=== PATIENT | female | born 1955 | race African-American/Black ===

== ENCOUNTER → 2019-10-09 10:24 | Outpatient (CLI) | payer BC, SELFPAY ==
--- NOTE | ~2019-10-09 | CT_ITS ---
EXAMINATION: CT abdomen pelvis w con DATE: 10/09/2019 12:17 INDICATION: Crohn's disease of the bowel. TECHNIQUE: Computed tomography (CT) of the abdomen and pelvis was performed with 100 cc Omnipaque 350 intravenous contrast. The dose-length product was 938.26 mGy-cm. Automated exposure control and iter ative reconstruction technique were employed. COMPARISON: CT dated 02/28/2018 FINDINGS: Lung bases are unremarkable. Heart size normal. No pleural or pericardial effusion. Mild at herosclerosis of the aorta. Surgical changes suggesting ileocecal resection. There is mild thickening of the ileum just proximal to the anastomosis. There are air-fluid levels in the small bowel as well as the colon, possible ileus. No definite obstruction. Moderate gastric distention. The liver, spleen, pancreas, adrenal glands and kidneys are unremarkable. No free air or free fluid. Gallbladder is present. Mild right inguinal lymphadenopathy, likely reactive. Mild bilateral sacroili itis, consistent with Crohn's disease. Uterus is likely surgically absent. IMPRESSION: 1. Mild thickening of the ileum just proximal to the ileocolic anastomosis, suspicious for acute infl ammation secondary to known Crohn's disease. No obstruction. Air-fluid levels in the small bowel and colon, likely ileus. Reviewed, dictated and finalized at location A. ERER IMPRESSION: 1. Mild thickening of the ileum just proximal to the ileocolic anastomosis, masha picious for acute inflammation secondary to known Crohn's disease. No obstructi on. Air-fluid levels in the small bowel and colon, likely ileus.
[2019-10-09 11:54] LABS: Blood Urea Nitrogen 10 mg/dL (8-26); Estimated Glomerular Filt Rate > 60
== END ==
PROVIDERS: Visit Provider Nurse Practitioner
DX: K50.80 Crohn's disease of both small and large intestine without complications (principal)
CPT/HCPCS: 74177; Q9967

== ENCOUNTER 2020-02-19 00:05 | Outpatient (CLI) | payer BC, SELFPAY ==
[2020-02-19 18:54] LABS: SARS-CoV-2 RNA PCR Negative
== END 2020-02-19 00:06 | disposition home or self-care (01) ==
LOC: ANHCOVIDDT 00:05
PROVIDERS: PCP Internal Medicine; Visit Provider Internal Medicine Gastroenterology
DX: Z01.812 Encounter for preprocedural laboratory examination (principal); Z11.59 Encounter for screening for other viral diseases
CPT/HCPCS: 87635; C9803; U0003

== ENCOUNTER 2020-02-21 01:45 | Day surgery (SDC) | payer BC, SELFPAY ==
[2020-02-14 13:20] VITALS: BMI 33.7
[2020-02-21 10:59] VITALS: BP 119/77; PULSE 100; RESP 18; TEMP 36.2; O2SAT 100
[2020-02-21] MEDS: LACTATED RINGERS 1,000 ML 150 ML IV CONT (11:06)
[2020-02-21] MEDS: GENTAMICIN 80MG/SOD CHL 50 ML 80 MG/50 ML BAG 100 MG IVPB (11:07)
--- NOTE | 2020-02-21 11:17 | WPDANESEPPF ---
Anes - Initial Pre Proc Eval Procedure: Operation Date: 02/21/20 12:00 Proposed Procedures p Colonoscopy - Phan Orozco DO Date/Time: 02/21/20 11:17 Surgeon: Phan Orozco DO Pre Op Diagnosis: Crohn's Patient Data Age: 64 Gender: F Height: 5 ft 6 in Weight: 91.8 kg Last Vital Signs Temp 97.2 F L 02/21/20 10:59 Pulse 100 02/21/20 10:59 Resp 18 02/21/20 10:59 BP 119/77 02/21/20 10:59 Pulse Ox 100 02/21/20 10:59 Allergies Allergy/AdvReac Type Severity Reaction Status Date / Time No Known Drug Allergies Allergy Unknown Other Verified 02/21/20 10:45 Home Medications Medication Instructions Recorded Confirmed Type calcium carbonate-vitamin D3 1 tablet PO DAILY 02/14/20 02/21/20 History folic acid 1 mg PO DAILY PRN 02/14/20 02/21/20 History hydrocodone-acetaminophen 1 tablet PO PRN PRN 02/14/20 02/21/20 History lansoprazole 30 mg PO DAILY 02/14/20 02/21/20 History mesalamine 1.2 g PO DAILY 02/14/20 02/21/20 History multivitamin [Tab-A-Nilesh] 1 tablet PO DAILY 02/14/20 02/21/20 History Patient hx anesthesia problems: none Family hx anesthesia problems: none PMFSH Past Medical History Medical History (Updated 02/21/20 @ 11:17 by Matheus Urena MD) GERD (gastroesophageal reflux disease) Family History Family History (Updated 03/06/19 @ 10:40 by DOCTOR UNKNOWN) Mother Diabetes mellitus Hypertension Family history of coronary artery disease Sibling Carcinoma of colon Social History Social History Smoking status: Current every day smoker Alcohol intake: current Anes - Eval Final PreProcedure Day of Procedure 02/21/20 11:17 Patient weight: normal Heart: regular rate and rhythm Lungs: clear to auscultation Airway: Mallampati scale class II Neurological: alert and oriented Last oral intake: >/= 8 hours ASA classification: II Emergent: no Anesthetic plan: proceed Anesthesia type and monitoring: general GIVS and standard monitoring Informed Consent: The patient's anesthetic plan and its attendant risks and benefits were discussed with the patient/family/POA. Questions were solicited and answers provided to the satisfaction of the patient/family/POA.
[2020-02-21] MEDS: AMPICILLIN 2 GM/NS 100 ML 2 GM/100 ML BAG IVPB (11:32)
--- NOTE | 2020-02-21 11:46 | P.HP_ITS ---
H&P: HPI History of Present Illness Chief complaint: Crohn's Narrative: Reason for visit colonoscopy. Impression: [place] lady with Crohn's disease. She is status post ileocolectomy. She has a family history colorectal cancer. She is here for screening and surveillance. GERD well controlled on medication. Intestinal metaplasia of the gastric mucosa. Breast cancer. Tobacco abuse. Obesity. Recommendation: Will proceed with colonoscopy. History: This very pleasant lady has history of Crohn's disease. She status post ileal colectomy. She also has a family history of colorectal cancer. She has history of reflux disease well controlled on medication. Her GI review syst ems at this time was negative. She is here for screening and surveillance. She previously has had small bowel Crohn's. physical examination: General: very pleasant patient in no acute distress. HEENT: Head was normocephalic sclerae is clear mouth without masses neck was supple. Heart: Rate rhythm regular without S3 or S4. Lungs: CTA. Abdomen: Soft with no guarding or rigidity. Bowel sounds were active. Neurologic: Cranial nerves 2 through 12 intact. No focal defects. No clonus. Musculoskeletal system: Revealed no joint tenderness or swelling no muscle atrophy. Extremities: Reveal no significant edema. Skin: Warm and dry with normal turgor. Mental status: intact. Patient is alert and oriented. Review of Systems Review of Systems: All systems reviewed & are unremarkable except as noted in HPI and below PMFSH Past Medical History Medical History Breast cancer RTX Crohn's disease GERD (gastroesophageal reflux disease) Intestinal metaplasia of gastric mucosa Tobacco abuse Surgical History Surgical History H/O colonoscopy H/O knee surgery History of ankle surgery History of esophagogastroduodenoscopy (EGD) S/P breast lumpectomy S/P small bowel resection Ileal-colectomy for crohn's Family History Family History Mother Diabetes mellitus Hypertension Family history of coronary artery disease Sibling Carcinoma of colon Social History Social History Smoking status: Current every day smoker Alcohol intake: current Meds Home Medications and Allergies Home Medications Medication Instructions Recorded Confirmed Type calcium carbonate-vitamin D3 1 tablet PO DAILY 02/14/20 02/21/20 History folic acid 1 mg PO DAILY PRN 02/14/20 02/21/20 History hydrocodone-acetaminophen 1 tablet PO PRN PRN 02/14/20 02/21/20 History lansoprazole 30 mg PO DAILY 02/14/20 02/21/20 History mesalamine 1.2 g PO DAILY 02/14/20 02/21/20 History multivitamin [Tab-A-Nilesh] 1 tablet PO DAILY 02/14/20 02/21/20 History Allergies Allergy/AdvReac Type Severity Reaction Status Date / Time No Known Drug Allergies Allergy Unknown Other Verified 02/21/20 10:45 Vital Signs Vital Signs - 24 hr 02/21/20 10:59 Temperature 36.2 C L Pulse Rate 100 Respiratory Rate 18 Blood Pressure 119/77 Pulse Oximetry 100
[2020-02-21 12:14] VITALS: BP 84/55; PULSE 84; RESP 27; O2SAT 97
[2020-02-21 12:23] VITALS: BP 99/61; PULSE 81; RESP 20; O2SAT 100
[2020-02-21 12:33] VITALS: BP 117/70; PULSE 82; RESP 20; O2SAT 98
[2020-02-21 13:32] LABS: Hematocrit 38.8 % (37.0-47.0); Hemoglobin 12.4 g/dL (12.0-15.0); Mean Corpuscular Hemoglobin 29.6 pg (26-34); Mean Corpuscular Volume 92.6 fl (80-100); Mean Platelet Volume 10.4 fl (7.4-10.4); Platelet Count Result 286 k/mm3 (150-375); Red Blood Count 4.19 M/mm3 (4.2-5.4); Red Cell Distribution Width 13.6 % (11.5-14.5); White Blood Count 10.6 K/mm3 (4.5-10.0)
[2020-02-21 13:39] LABS: INR 1.1; Prothrombin Time 13.8 Seconds (11.1-14.7)
[2020-02-21 13:40] LABS: Cholesterol 190 mg/dL (0-200); HDL Direct 33 mg/dL; Magnesium 1.9 mg/dL (1.6-2.3); Phosphorus 4.4 mg/dL (2.5-4.5); Triglycerides 230 mg/dL (<150)
[2020-02-21 13:41] LABS: Alanine Aminotransferase 11 U/L (4-35); Albumin Level 4.1 g/dL (3.5-5.1); Alkaline Phosphatase 142 U/L (38-126); Aspartate Amino Transferase 22 U/L (14-36); Bilirubin,Total 0.4 mg/dL (0.2-1.3)
[2020-02-21 13:51] LABS: Iron 45 ug/dL (37-170)
[2020-02-21 13:52] LABS: LDL Cholesterol Direct 121 mg/dL
[2020-02-21 13:58] LABS: T4 Thyroxine 8.34 ug/dL (5.53-11.0)
[2020-02-21 14:01] LABS: Percent Iron Saturation 13 % (20-50)
[2020-02-21 14:27] LABS: Free T4 Free Thyroxine 1.13 ng/mL (0.78-2.19)
[2020-02-21 14:48] LABS: Folic Acid > 20.0 ng/mL (2.76->20)
[2020-02-21 15:36] LABS: Hepatitis B Surface Antigen Negative (Negative)
[2020-02-24 22:47] LABS: NIL 0.01 IU/mL; Quantiferon TB Plus, 1T NEGATIVE (NEGATIVE); TB2-NIL 0.01 IU/mL
[2020-02-25 04:17] LABS: Hepatitis A Antibody Total Nonreactive (Nonreactive); Hepatitis B Core Ab Total Nonreactive (Nonreactive)
[2020-03-01 17:21] LABS: TPMT Activity 10
== END 2020-02-21 13:11 | disposition home or self-care (01) ==
PROVIDERS: PCP Internal Medicine; Visit Provider Internal Medicine Gastroenterology
PROC: 0DJD8ZZ Inspection of Lower Intestinal Tract, Via Natural or Artificial Opening Endoscopic (ICD-10-PCS; CPT 45378; principal; 2020-02-21 12:00)
DX: K50.10 Crohn's disease of large intestine without complications (principal); K50.00 Crohn's disease of small intestine without complications; K64.8 Other hemorrhoids; Z98.0 Intestinal bypass and anastomosis status; Z90.49 Acquired absence of other specified parts of digestive tract; K21.9 Gastro-esophageal reflux disease without esophagitis; F17.210 Nicotine dependence, cigarettes, uncomplicated; Z85.3 Personal history of malignant neoplasm of breast; E66.9 Obesity, unspecified; Z68.32 Body mass index [BMI] 32.0-32.9, adult; Z79.899 Other long term (current) drug therapy
CPT/HCPCS: 45380; 36415; 80061; 80076; 82525; 82607; 82657; 82728; 82746; 83540; 83550; 83735; 84100; 84436; 84439; 84443; 85027; 85610; 86480; 86704; 86708; 87340; 88305; J0290; J1580; J2704; J7120

== ENCOUNTER 2020-03-14 20:53 | Observation (INO) | payer BC, SELFPAY ==
--- NOTE | ~2020-03-14 | XR_ITS ---
EXAMINATION: XR chest 2V EXAM DATE: 03/16/2020 10:46 INDICATION: Leukocytosis. TECHNIQUE: Frontal and lateral projections of the chest obtained and reviewed. Comparison is made to prior examination from 04/22/2015. FINDINGS: The lungs are clear. There are no pleural effusions. The cardiomediastinal silhouette is within normal limits. There is no pneumothorax suspected. Patient has diffuse idiopathic skeletal h yperostosis (DISH). IMPRESSION: No acute cardiopulmonary findings. Reviewed, dictated and finalized at location G.
[2020-03-14 20:58] VITALS: BP 175/93; PULSE 116; RESP 14; TEMP 36.8; O2SAT 99
[2020-03-14 21:01] LABS: Glucose Point of Care > 500 (65-105)
[2020-03-14 22:15] LABS: Basophils Percent Auto 0.3 % (0.2-1.2); Eosinophils Absolute Auto 0.1 K/mm3 (0-0.3); Eosinophils Percent Auto 0.4 % (0-4.4); Hematocrit 42.9 % (37.0-47.0); Immature Granulocyte Absolute 0.04 K/mm3 (0.00-0.031); Immature Granulocyte Percent A 0.3 % (0-0.5); Lymphocytes Absolute Auto 3.29 K/mm3 (0.9-3.2); Lymphocytes Percent Auto 26.3 % (18.3-44.2); Mean Corpuscular HGB Conc 32.6 g/dl (32-36); Mean Corpuscular Hemoglobin 29.7 pg (26-34); Mean Corpuscular Volume 91.1 fl (80-100); Mean Platelet Volume 11.2 fl (7.4-10.4); Monocytes Absolute Auto 0.8 K/mm3 (0.1-0.6); Monocytes Percent Auto 6.4 % (2.6-8.5); Neutrophils Absolute Auto 8.3 K/mm3 (1.3-6.7); Neutrophils Percent Auto 66.3 % (45.5-73.1); Platelet Count Result 339 k/mm3 (150-375); Red Blood Count 4.71 M/mm3 (4.2-5.4); Red Cell Distribution Width 14.1 % (11.5-14.5); White Blood Count 12.5 K/mm3 (4.5-10.0)
[2020-03-14] MEDS: SODIUM CHLORIDE 0.9% IV 1,000 ML 999 ML IV CONT ×2 (22:15)
[2020-03-14 22:16] LABS: Add Urine Microscopic? YES; Appearance Urine Clear (Clear); Bilirubin Urine Negative (Negative); Blood Urine Negative (Negative); Color Urine Colorless (Yellow); Glucose Urine UA 3+ mg/dL (Negative); Ketones Urine Negative (Negative); Leukocyte Esterase Ur Trace LEU/UL (Negative); Nitrate Urine Negative (Negative); Protein Urine Negative (Negative); RBC Urine 0-2 /hpf (0-2); Squamous Epithelial Cell Urine Occasional /hpf (Few); Urobilinogen Urine Negative mg/dL (<2.0); WBC Urine 0-3 /hpf
[2020-03-14 22:17] LABS: Specific Grav Ur 1.032 (1.001-1.035)
[2020-03-14 22:19] LABS: Alveolar/Arterial O2 Gradient 21.8 mmHg; Base Excess ABG -0.1 mEq/l (+/-2.0); Carboxyhemoglobin 7.8 % THb (0-2.0); Fractional Inspired Oxygen 21 %; HCO3 ABG 24.6 mEq/l (22.0-26.0); Methemoglobin ABG 0.3 %THb (0-1.5); Oxygen Content ABG 17.6 %vol (16.0-22.0); Oxygen Saturation ABG 95.8 % (95.0-100.0); Oxyhemoglobin 87.2 % THb (90.0-100.0); PCO2 ABG 40.5 mmHg (35.0-45.0); PO2 ABG 79.4 mmHg (80.0-100.0); PO2 FiO2 Ratio Arterial Blood 3.78 %; Reduced Hemoglobin 4.7 %THb (0-5.0); Total Hemoglobin 14.3 g/dL (12.0-18.0); pH ABG 7.402 (7.350-7.450)
[2020-03-14 22:20] LABS: Device ROOM AIR; Modified Allen's Test Pass; Site Drawn LEFT RADIAL
[2020-03-14 22:29] LABS: Alanine Aminotransferase 20 U/L (4-35); Albumin Level 4.6 g/dL (3.5-5.1); Alkaline Phosphatase 304 U/L (38-126); Anion Gap 14.4 mmol/L (7-16); Aspartate Amino Transferase 25 U/L (14-36); Bilirubin,Total 0.4 mg/dL (0.2-1.3); Blood Urea Nitrogen 19 mg/dL (7-17); Calcium 10.5 mg/dL (8.4-10.2); Carbon Dioxide 27 mmol/L (22-30); Chloride 102 mmol/L (98-107); Estimated CRCL calculation 63 ml/min; Estimated Glomerular Filt Rate > 60; Magnesium 2.2 mg/dL (1.6-2.3); Phosphorus 4.9 mg/dL (2.5-4.5); Potassium 4.4 mmol/L (3.4-5.0); Sodium 139 mmol/L (137-145)
[2020-03-14 22:34] LABS: Beta-Hydroxybutyrate/Acetoacetate 0.66 mmol/L (0.02-0.27)
[2020-03-14 22:38] LABS: Glucose 721 mg/dL (65-105)
[2020-03-14 23:01] VITALS: BP 159/84; PULSE 96; RESP 18; O2SAT 100
[2020-03-14 23:41] LABS: Glucose Point of Care > 500 (65-105)
--- NOTE | 2020-03-14 23:42 | PC.NURSE ---
Dr Caba aware repeat Glucose POC 507
[2020-03-14] MEDS: INSULIN HUMAN REGULAR (*BKC) 100 UNITS/ML 9 UNITS IV PUSH (23:53)
--- NOTE | 2020-03-15 00:12 | ED.RECABL ---
HPI - Recheck/Abnormal Lab/Rx General Chief Complaint: Recheck/Abnormal Lab/Rx Stated Complaint: elevated blood sugar Time Seen by Provider: 03/14/20 21:26 History of Present Illness HPI narrative: Patient is a 64-year-old female who presents ER with elevated blood sugar. Patient reports that over the last week she has been having more frequent urination has been thirsty all the time. She is been feeling more fatigued. Family thought she looked off so they took her to an urgent care where she was found to be hyperglycemic. Patient has no history of diabetes personally but does have family history. No fever/chills/sweats/nausea/vomiting/dizziness. Has not found any aggravating or alleviating factors for symptoms. Related Data Home Medications Medication Instructions Recorded Confirmed calcium carbonate-vitamin D3 1 tablet PO DAILY 02/14/20 02/21/20 folic acid 1 mg PO DAILY PRN 02/14/20 02/21/20 lansoprazole 30 mg PO DAILY 02/14/20 02/21/20 mesalamine 1.2 g PO DAILY 02/14/20 02/21/20 multivitamin [Tab-A-Nilesh] 1 tablet PO DAILY 02/14/20 02/21/20 budesonide 9 mg PO DAILY 03/14/20 Allergies Allergy/AdvReac Type Severity Reaction Status Date / Time No Known Drug Allergies Allergy Unknown Other Verified 03/14/20 21:33 Review of Systems Review of Systems: All systems reviewed & are unremarkable except as noted in HPI and below Constitutional: Constitutional: Denies chills, Denies fever(s) and Denies weakness ENT: Denies nasal congestion and Denies sore throat Cardiovascular: Cardiovascular: Denies chest pain and Denies rapid heart rate Gastrointestinal: Gastrointestinal: Denies abdominal pain, Denies nausea and Denies vomiting Endocrine: Endocrine: Denies excessive sweating, Reports fatigue, Reports polydipsia and Reports polyuria PMFSH Past Medical History Medical History (Updated 03/15/20 @ 02:28 by Nikita Caba MD) Breast cancer Invasive ductal carcinoma status post right partial mastectomy May 2013 status post radiation treatment Crohn's disease GERD (gastroesophageal reflux disease) Intestinal metaplasia of gastric mucosa Tobacco abuse Surgical History Surgical History (Updated 03/15/20 @ 02:16 by Liz Rivera DO) H/O colonoscopy History of ankle surgery History of esophagogastroduodenoscopy (EGD) History of total right knee replacement 2015 S/P breast lumpectomy partial mastectomy due to invasive ductal carcinoma May 2013 S/P small bowel resection Ileal-colectomy for crohn's Family History Family History (Updated 03/15/20 @ 02:17 by Liz Rivera DO) Mother Diabetes mellitus Hypertension Heart disease Sibling Carcinoma of colon sister Son Diabetes mellitus Social History Social History Smoking status: Current every day smoker Alcohol intake: current Exam Narrative: Exam Narrative: GENERAL: Well-appearing, well-nourished, and in no acute distress. HEAD: Normocephalic, atraumatic. EYES: PERRL and EOMI. CHEST: Clear to auscultation. No respiratory distress. HEART: Tachycardic and regular. Normal peripheral pulses. ABDOMEN: Soft, nontender, nondistended. EXTREMITIES: Normal range of motion. No edema. SKIN: Warm, dry, no rash. NEURO: Alert and oriented x3. PSYCH: Normal mood and affect. Course Course Emergency Course: Blood sugar responding well to IV fluid and insulin. Will admit for observation. Vital Signs Vital signs: Vital Signs Temperature 98.3 F 03/14/20 20:58 Pulse Rate 116 H 03/14/20 20:58 Respiratory Rate 14 03/14/20 20:58 Blood Pressure 175/93 H 03/14/20 20:58 Pulse Oximetry 99 03/14/20 20:58 Temperature 96.9 F L 03/15/20 02:15 Pulse Rate 90 03/15/20 02:15 Respiratory Rate 18 03/15/20 02:15 Blood Pressure 160/85 H 03/15/20 02:15 Pulse Oximetry 100 03/15/20 02:15 MDM - Recheck/Abnormal Lab/Rx Lab Data Result diagrams: 03/14/20 22
[2020-03-15 00:38] LABS: Glucose Point of Care 296 (65-105)
[2020-03-15 01:39] VITALS: BP 133/84; PULSE 94; RESP 16; TEMP 36.6; O2SAT 99
--- NOTE | 2020-03-15 02:12 | ADMGEN ---
This patient, Nichole Santizo, was admitted to Medical Room 254-01 0210. Patient/family oriented to hospital policies and general routines including ID bracelet, bed and alarms, visiting hours, pain management, procedures, bathroom and other care routines, personal items, smoking policy, room service/diet, and visiting hours. Valuables list has been completed. Information on how to activate the Rapid Response Team has been discussed. Patient/Family are encouraged to report perceived risks to care and to ask questions if they do not understand what they are told or what they should do.
[2020-03-15 02:15] VITALS: BP 160/85; PULSE 90; RESP 18; TEMP 36.1; O2SAT 100; BMI 31.5
[2020-03-15] MEDS: SODIUM CHLORIDE 0.9% IV 1,000 ML 100 ML IV CONT (02:15)
[2020-03-15 03:00] LABS: Glucose Point of Care 308 (65-105)
--- NOTE | 2020-03-15 03:24 | PCCDE ---
Left message on voice mail alerting certified breastfeeding educator to Newly Diagnosed Diabetic.
--- NOTE | 2020-03-15 05:01 | PM.IMHP ---
H&P: HPI History of Present Illness Chief complaint: hyperglycemia Narrative: date and time of patient contact: 03/15/2020 at 4:00 a.m. Nichole Santizo is a 64 year old female with a past medical history of GERD anxiety and Crohn's disease who presented to the ER from urgent care due to increased urinary frequency. The patient was having increased urinary frequency and occasional dysuria for the last week or so. It was accompanied by polydipsia and blurred vision. she reports that food has not tasted normal for the last week or so. She you went to urgent care at which time an Accu-Chek demonstrated glucose greater than 500 and she was directed to come to the ER. She denies having history of diabetes. However, her son at 30 years old of complications of diabetes. she has not had any nausea or vomiting. She denies any abdominal pain. She has noticed some mild dysuria but denies any hematuria, foul-smelling urine, or urinary incontinence. She has had increased nocturia. She denies any numbness, burning or paresthesias of her extremities. She has not had any fevers or chills. She denies any cough or congestion. She has not noticed any sore throat or difficulty swallowing. she has smoked since she was a teenager but denies a diagnosis of COPD or respiratory symptoms. Review of Systems Review of Systems: Narrative: 12 systems were reviewed with pertinent positives and negatives per HPI. Except as documented in the HPI, all other systems were reviewed and are negative. [facility] Past Medical History Medical History (Updated 03/15/20 @ 05:13 by Liz Rivera DO) Breast cancer Invasive ductal carcinoma status post right partial mastectomy May 2013 status post radiation treatment Crohn's disease GERD (gastroesophageal reflux disease) Intestinal metaplasia of gastric mucosa Tobacco abuse Surgical History Surgical History (Updated 03/15/20 @ 05:18 by Liz Rivera DO) H/O colonoscopy History of ankle surgery History of esophagogastroduodenoscopy (EGD) History of total right knee replacement Originally performed around [address] Grady S/P breast lumpectomy partial mastectomy due to invasive ductal carcinoma May 2013 S/P small bowel resection Ileal-colectomy for crohn's Family History Family History (Updated 03/15/20 @ 05:07 by Liz Rivera DO) Mother Diabetes mellitus Hypertension Heart disease Sibling Breast cancer sister Son Diabetes mellitus at age 30 Social History Social History (Updated 03/15/20 @ 05:10 by Liz Rivera DO) Social History: Primary care physician: Dr. Resendez Code status: Full code per EMR Smoking packs per day: 1 Smoking cigarettes per day: 20.0 Years smoked: 45 Smoking pack-years: 45.00 Smoking status: Current every day smoker Tobacco type: cigarettes Alcohol intake: current Alcohol use details: she rarely drinks alcohol and only in moderation. Substance use: unknown Substance use type: does not use Additional living arrangements comments: She is single and lives alone. She had 1 son who at age 30 of complications of diabetes. She has a daughter who is now 30 and has medical conditions but the patient is unaware of what they are. Occupation/Education: occupation Additional occupation/education comments: She works in a [employer]. Spiritual care concerns: No Meds Home Medications and Allergies Home Medications Medication Instructions Recorded Confirmed Type calcium carbonate-vitamin D3 1 tablet PO DAILY 02/14/20 03/15/20 History folic acid 1 mg PO DAILY 02/14/20 03/15/20 History lansoprazole 30 mg PO DAILY 02/14/20 03/15/20 History mesalamine 1.2 g PO DAILY 02/14/20 03/15/20 History multivitamin [Tab-A-Nilesh] 1 tablet PO DAILY 02/14/20 03/15/20 History budesonide 9 mg PO DAILY 03/14/20 03/15/20 History Allergies Allergy/AdvReac Type Sever
[2020-03-15 05:35] VITALS: BP 149/74; PULSE 81; RESP 20; TEMP 36.1; O2SAT 100
[2020-03-15 06:06] LABS: Anion Gap 8.9 mmol/L (7-16); Blood Urea Nitrogen 14 mg/dL (7-17); Calcium 8.9 mg/dL (8.4-10.2); Carbon Dioxide 26 mmol/L (22-30); Chloride 110 mmol/L (98-107); Estimated CRCL calculation 91 ml/min; Estimated Glomerular Filt Rate > 60; Glucose 318 mg/dL (65-105); Potassium 3.9 mmol/L (3.4-5.0); Sodium 141 mmol/L (137-145)
[2020-03-15 06:10] LABS: Hemoglobin A1C 8.2 % (<5.7)
[2020-03-15 07:46] LABS: Glucose Point of Care 299 (65-105)
[2020-03-15] MEDS: INSULIN ASPART (*BKC) 100 UNITS/ML SUB-Q ×3 (08:01→16:25)
[2020-03-15] MEDS: metFORMIN HCL 500 MG TABLET PO ×2 (08:02→16:26)
[2020-03-15] MEDS: BUDESONIDE 3 MG CAP.SR.24H 9 MG PO (09:15)
[2020-03-15] MEDS: LANSOPRAZOLE ORAL SUSP 30 MG/10 ML ORAL.SUSP PO (09:15)
[2020-03-15] MEDS: FOLIC ACID 1 MG TABLET PO (09:15)
[2020-03-15] MEDS: MESALAMINE 400 MG DELAYED RELEASE CAPSULE 1200 MG PO (09:15)
[2020-03-15] MEDS: ENOXAPARIN 40 MG/0.4 ML SYRINGE SUB-Q (09:15)
[2020-03-15] MEDS: MULTIVITAMINS THERAPEUTIC TAB (*BKC) 1 TABLET PO (09:16)
[2020-03-15 11:37] LABS: Glucose Point of Care 306 (65-105)
--- NOTE | 2020-03-15 13:00 | PC.NURSE ---
Reviewed diabetic teaching manual with patient. Worked with patient with glucometer and demonstrated how to use machine. Patient verbalized her understanding. Discussed hypoglycemia, hyperglycemia, diet, exercise, medications and monitoring blood sugars by keeping a log for her PCP. Discussed importance of follow up with a PCP STEVIE. Gave patient information on senior health educator and how to follow up as an outpatient.
[2020-03-15 14:00] VITALS: BP 105/66; PULSE 89; RESP 12; TEMP 36.2; O2SAT 97
--- NOTE | 2020-03-15 14:53 | PCDIET ---
Nutrition consult complete: Pt current nutrition is [facility] Nutrition recommendation: appropriate Last recorded weight is 88.6 kg Bowel Motility: N/A Labs Reviewed: A1c 8.2, Glucose 306 Meds Noted: MTV, Zofran, Januvia, Metformin, Folic Acid, Calcium carbonate Additional Notes: Pt with newly dx DM. She skips lunch and does oats with sausage and eggs for breakfast. Midday snack is crackers. She drinks water and gatorade. Dinner is balanced protein, starch, veggie. Education and handouts provided on a [facility] diet. Encouraged pt to f/u with outpatient services. Edu on where carbs and protein are found and encouraged 45g of carbs at each meal. Edu on myplate method of meal planning. Edu on label reading. More details under nutritional teaching.
--- NOTE | 2020-03-15 15:58 | PM.IMPN ---
Progress Note: A&P Assessment and Plan (1) New onset type 2 diabetes mellitus: Code(s): E11.9 - Type 2 diabetes mellitus without complications Status: Acute Assessment and Plan: ----- patient's glucose is still uncontrolled at 306 this afternoon. I am afraid if she discharges today she will be right back in the ER. This has improved since admission where her glucose was 721. although her glucose is very high, her A1c is only 8.2 and she was started on metformin and Januvia. We will hopefully have better glucose control tomorrow while her new medications work and she adjusts her diet. She will likely just go home on the oral medications. She agrees to see the log roller outpatient since she it is unlikely she will be in the hospital on Wednesday when the log roller is back. I educated her about foot checks and that she needs to get routine eye exams. We also talked about what to do in the event of hypoglycemia. (2) Hyperglycemia: Code(s): R73.9 - Hyperglycemia, unspecified Status: Acute Assessment and Plan: ----- See above (3) Elevated blood pressure reading without diagnosis of hypertension: Code(s): R03.0 - Elevated blood-pressure reading, without diagnosis of hypertension Status: Acute Assessment and Plan: ----- last blood pressure 105/66 but was elevated in the ER likely due to stress. will monitor her blood pressure and start medication if necessary Time Spent With Patient Time with patient: 25 - 35 minutes Subjective Date/time seen: 03/15/20 15:58 Interval history: Pt is a 64-year-old female here for new onset diabetes. Patient was seen today with daughter at bedside and we discussed diabetes at length. The patient also talk to a dietitian today and did not have any further questions. We reviewed the maintenance that, diabetes such as foot checks and yearly eye exams. She has not had any diarrhea or GI upset from her newly started metformin. she is no longer having frequent urination or extreme thirst. She is eating and drinking well. She has not had any chest pain or shortness of breath now or in the last 6 months. Review of Systems Review of Systems: All systems reviewed & are unremarkable except as noted in HPI and below Exam Narrative: Exam Narrative: General: Well developed well nourished patient Resting in the chair in no acute distress HEENT: normocephalic Neck: supple Neuro: Alert and oriented x4 CV:RRR Resp:CTA Abd: Soft, non distended. No pain to palpation. Positive bowel sounds Extremities: No swelling, erythema, or pain to palpation. Objective Data Vital Signs Vital Signs: Vital Signs - 24 hr 03/14/20 20:58 03/14/20 23:01 03/15/20 01:39 Temperature 98.3 F 97.9 F Pulse Rate 116 H 96 94 Respiratory Rate 14 18 16 Blood Pressure 175/93 H 159/84 H 133/84 Pulse Oximetry 99 100 99 03/15/20 02:15 03/15/20 05:35 03/15/20 14:00 Temperature 96.9 F L 97.0 F L 97.1 F L Pulse Rate 90 81 89 Respiratory Rate 18 20 12 Blood Pressure 160/85 H 149/74 H 105/66 Pulse Oximetry 100 100 97 Intake/Output Intake/Output: Intake & Output 03/12/20 03/13/20 03/14/20 03/15/20 23:59 23:59 23:59 23:59 Intake Total 1999 580 Balance 1999 580 Meds/Results Medications: Active Medications Generic Name Dose Route Start Last Admin Trade Name Freq PRN Reason Stop Dose Admin Acetaminophen 650 mg 03/15/20 00:54 Tylenol Tablet PO Q4H PRN Mild Pain (1-3) or Fever Hydrocodone Bitart/Acetaminophen 1 tab 03/15/20 00:54 [place] 5-325 Mg PO Q4H PRN Pain Rated 4-6 Budesonide 9 mg 03/15/20 09:00 03/15/20 09:15 Entocort Ec PO 9 mg DAILY [place] Administration Calcium Carbonate 500 mg 03/15/20 09:00 03/15/20 09:15 Os-Kai 500 +D Tablet PO 500 mg QAM [place] Administration Dextrose 12.5 gm 03/15/20 00:55 Dextrose 50% Syringe IV PUSH PRN PRN Hypoglyce
[2020-03-15 16:14] LABS: Glucose Point of Care 307 (65-105)
[2020-03-15 20:00] VITALS: BP 127/61; PULSE 82; RESP 18; TEMP 36.2; O2SAT 97
[2020-03-15 22:16] LABS: Glucose Point of Care 273 (65-105)
[2020-03-16 05:41] LABS: Hematocrit 34.4 % (37.0-47.0); Hemoglobin 11.3 g/dL (12.0-15.0); Mean Corpuscular HGB Conc 32.8 g/dl (32-36); Mean Corpuscular Hemoglobin 29.7 pg (26-34); Mean Corpuscular Volume 90.5 fl (80-100); Mean Platelet Volume 10.9 fl (7.4-10.4); Platelet Count Result 233 k/mm3 (150-375); Red Cell Distribution Width 13.6 % (11.5-14.5); White Blood Count 10.3 K/mm3 (4.5-10.0)
[2020-03-16 05:58] LABS: Alanine Aminotransferase 15 U/L (4-35); Albumin Level 3.2 g/dL (3.5-5.1); Alkaline Phosphatase 157 U/L (38-126); Anion Gap 7.7 mmol/L (7-16); Aspartate Amino Transferase 23 U/L (14-36); Bilirubin,Total 0.3 mg/dL (0.2-1.3); Blood Urea Nitrogen 15 mg/dL (7-17); Calcium 8.5 mg/dL (8.4-10.2); Carbon Dioxide 26 mmol/L (22-30); Chloride 106 mmol/L (98-107); Estimated CRCL calculation 79 ml/min; Estimated Glomerular Filt Rate > 60; Glucose 331 mg/dL (65-105); Potassium 3.7 mmol/L (3.4-5.0); Sodium 136 mmol/L (137-145)
[2020-03-16 06:00] VITALS: BP 149/70; PULSE 69; RESP 18; TEMP 36.6; O2SAT 100
[2020-03-16 07:27] LABS: Glucose Point of Care 301 (65-105)
[2020-03-16] MEDS: INSULIN ASPART (*BKC) 100 UNITS/ML SUB-Q ×2 (07:43→11:39)
[2020-03-16] MEDS: LANSOPRAZOLE ORAL SUSP 30 MG/10 ML ORAL.SUSP PO (07:56)
[2020-03-16] MEDS: metFORMIN HCL 500 MG TABLET PO (07:56)
[2020-03-16] MEDS: BUDESONIDE 3 MG CAP.SR.24H 9 MG PO (08:25)
[2020-03-16] MEDS: ENOXAPARIN 40 MG/0.4 ML SYRINGE SUB-Q (08:25)
[2020-03-16] MEDS: FOLIC ACID 1 MG TABLET PO (08:25)
[2020-03-16] MEDS: MULTIVITAMINS THERAPEUTIC TAB (*BKC) 1 TABLET PO (08:25)
[2020-03-16] MEDS: MESALAMINE 400 MG DELAYED RELEASE CAPSULE 1200 MG PO (08:25)
[2020-03-16] MEDS: INSULIN GLARGINE (*BKC) 100 UNITS/ML 8 UNITS SUB-Q (09:02)
[2020-03-16 11:37] LABS: Glucose Point of Care 252 (65-105)
--- NOTE | 2020-03-16 13:02 | PM.DS ---
DS: Admitting Diagnosis Admitting Diagnosis Admitting Diagnosis: Type 2 diabetes mellitus without complications DS: Discharge Diagnosis Discharge Diagnosis (1) New onset type 2 diabetes mellitus: Code(s): E11.9 - Type 2 diabetes mellitus without complications Status: Acute Assessment and Plan: ----- patient's glucose on arrival was 721 and was 252 at discharge. Her A1c is 8.2. She was started on Januvia, metformin, and Lantus 10 units daily. She was educated about checking her glucose, how to use the equipment, and recording her values. She also was told she should get eye exams every year and foot checks daily. She is going to follow-up with her primary care physician and likely get referred to wind operations manager. Patient seems motivated to change her lifestyle and she talked to the dietitian while here at the hospital (2) Hyperglycemia: Code(s): R73.9 - Hyperglycemia, unspecified Status: Acute Assessment and Plan: ----- See above (3) Elevated blood pressure reading without diagnosis of hypertension: Code(s): R03.0 - Elevated blood-pressure reading, without diagnosis of hypertension Status: Acute Assessment and Plan: ----- last blood pressure 139/83. Norvasc started at discharge. DS: Summary Hospital Course Reason for hospitalization: New onset uncontrolled diabetes Hospital Course: patient is 64-year-old female who presented emergency room for polydipsia and frequent urination found to be a new onset diabetic with the glucose of 721. Patient was admitted to the hospitalist service and started on metformin, Januvia and Lantus. Her glucose improved and at discharge was 252. Urinary frequency and polydipsia improved. She will underwent extensive education about diabetes and is going to follow-up with her primary care physician. Please see above for further information. Her white count was slightly elevated on admission but improved throughout her stay, no infection suspected. Status at Discharge Functional status at discharge: independent ambulation Overall status at discharge: patient is back to baseline Time Spent with Patient Time attestation: Total time spent providing and/or coordinating discharge services:38 min Time spent: Greater than 30 minutes Exam Narrative: Exam Narrative: General: Well developed well nourished patient Resting in the chair in no acute distress HEENT: normocephalic Neck: supple Neuro: Alert and oriented x4 CV:RRR Resp:CTA Abd: Soft, non distended. No pain to palpation. Positive bowel sounds Extremities: No swelling, erythema, or pain to palpation. DS: Data Data Completed and Pending Labs on day of discharge: Labs from last 24 hours 03/16/20 03/16/20 03/16/20 11:33 07:19 05:20 WBC RBC Hgb Hct MCV MCH MCHC RDW Plt Count MPV Sodium 136 L Potassium 3.7 Chloride 106 Carbon Dioxide 26 Anion Gap 7.7 BUN 15 Creatinine 0.70 Estim Creat Clear Calc 79 Estimated GFR > 60 Glucose 331 H POC Capillary Glucose 252 H 301 H Calcium 8.5 Total Bilirubin 0.3 Direct Bilirubin 0.0 AST 23 ALT 15 Alkaline Phosphatase 157 H Total Protein 6.0 L Albumin 3.2 L 03/16/20 03/15/20 03/15/20 05:20 20:48 16:11 WBC 10.3 H RBC 3.80 L Hgb 11.3 L Hct 34.4 L MCV 90.5 MCH 29.7 MCHC 32.8 RDW 13.6 Plt Count 233 MPV 10.9 H Sodium Potassium Chloride Carbon Dioxide Anion Gap BUN Creatinine Estim Creat Clear Calc Estimated GFR Glucose POC Capillary Glucose 273 H 307 H Calcium Total Bilirubin Direct Bilirubin AST ALT Alkaline Phosphatase Total Protein Albumin Discharge Plan Discharge Attending physician on discharge: Melody Vela Discharging Clinician: Lulu Sanchez Patient Disposition: Home, Self-Care
[2020-03-16 14:00] VITALS: BP 139/83; PULSE 90; RESP 16; TEMP 36.4; O2SAT 100
== END 2020-03-16 15:05 | disposition home or self-care (01) ==
LOC: ANHED 03-15 01:06 → ANH2MED 03-15 01:52
PROVIDERS: Physician Assistant; Admitting Provider Internal Medicine; Emergency Provider Emergency Medicine; PCP Internal Medicine; Visit Provider Family Medicine
DX: E11.65 Type 2 diabetes mellitus with hyperglycemia (principal); R03.0 Elevated blood-pressure reading, without diagnosis of hypertension; F17.210 Nicotine dependence, cigarettes, uncomplicated; K21.9 Gastro-esophageal reflux disease without esophagitis; K50.90 Crohn's disease, unspecified, without complications; Z85.3 Personal history of malignant neoplasm of breast; Z96.651 Presence of right artificial knee joint; Z79.899 Other long term (current) drug therapy
CPT/HCPCS: 36415; 36600; 71046; 80048; 80053; 80076; 81001; 82010; 82375; 82805; 82948; 83036; 83050; 83735; 84100; 85025; 85027; 96361; 96372; 96374; 99285; A9270; G0378; J1650; J1815; J7030

== ENCOUNTER → 2020-03-26 10:24 | Outpatient (CLI) | payer BC, SELFPAY ==
--- NOTE | ~2020-03-26 | CT_ITS ---
EXAMINATION: CT abdomen pelvis w con DATE: 03/26/2020 11:52 INDICATION: Crohn's disease of small and large bowel. History of breast cancer in 2013. TECHNIQUE: Computed tomography (CT) of the abdomen and pelvis was performed with 100 cc Omnipaque 350 intravenous contrast. Automated exposure control and iterative reconstruction technique were employe d. Exam dose: 914.84 mGy-cm total exam DLP. COMPARISON: 10/09/2019 CT abdomen pelvis FINDINGS: Normal heart size. No pericardial or pleural effusion. The lung bases are clear of infiltrate or consolidation. The liver, gallbladder, bile ducts, spleen, pancreas and pancreatic duct is well as adrenal glands an d kidneys are unremarkable. No urinary tract calculus or hydroureteronephrosis. The urinary bladder i s unremarkable. Status post hysterectomy. There is atherosclerotic calcification of the abdominal aorta but no aneurysm. No intraperitoneal or retroperitoneal or pelvic mass lesion or adenopathy or ascites. The stomach is distended with fluid. There is thickening of the wall of a short segment of the very distal small bowel, which may represen t active Crohn's. Partial resection of the right colon. There are air fluid levels of the ascending and transverse colo n and a prominent amount of fecal material in the descending colon. No colonic wall thickening. No justina wel obstruction or intraperitoneal free air. Diffuse idiopathic skeletal hyperostosis of the thoracic spine. There is grade 1 anterolisthesis at L4-5 due to degenerative change at the apophyseal joints. There i s degenerative disease of the lumbar spine. IMPRESSION: Short segment distal small bowel wall thickening, which may be due to active Crohn's dis ease Status post partial resection of the right colon Reviewed, dictated and finalized at [facility]. Reviewed, dictated and finalized at [facility]. IMPRESSION: Short segment distal small bowel wall thickening, which may be due to active Crohn's disease Status post partial resection of the right colon
[2020-03-26 11:37] LABS: Estimated Glomerular Filt Rate > 60
== END ==
PROVIDERS: Visit Provider Internal Medicine Gastroenterology
DX: K50.80 Crohn's disease of both small and large intestine without complications (principal)
CPT/HCPCS: 36415; 74177; Q9967

== ENCOUNTER → 2020-07-17 10:29 | Outpatient (CLI) | payer BC, SELFPAY ==
--- NOTE | ~2020-07-17 | DEXA_ITS ---
Bone Density Report Name: Nichole Santizo Age: 64 Sex: Female Ethnicity: Black Date of : 1955 Indication: postmenopausal; screening for osteoporosis; inflammatory bowel disease; cancer; hysterectomy; Referring Provider: PASQUALE RABAGO Study: Bone densitometry was performed. Exam Date: July 17, 2020 Accession number: [id number] Bone Density: Region BMD T-score Z-score Classification AP Spine (L1-L4) 1.051 0.0 1.0 Normal Femoral Neck (Left) 0.785 -0.6 0.1 Normal Total Hip (Left) 0.897 -0.4 0.1 Normal Femoral Neck (Right) 0.794 -0.5 0.1 Normal Total Hip (Right) 0.921 -0.2 0.2 Normal Total Hip Mean 0.909 -0.3 0.2 Normal World Health Organization criteria for BMD impression classify patients as: Normal (T-score at or above -1.0), Osteopenia (T-score between -1.0 and -2.5), or Osteoporosis (T-score at or below -2.5). 10-year Fracture Risk: FRAX not reported because: All T-scores for Spine Total, Hip Total, Femoral Neck at or above -1.0 Previous Exams: Region Exam Age BMD T-score BMD Change BMD Change Date g/cm2 vs Baseline vs Previous AP Spine(L1-L4) 07/17/2020 64 1.051 0.0 -0.006 0.071* 05/09/2018 62 0.980 -0.6 -0.077* -0.053* 05/29/2015 59 1.033 -0.1 -0.024* -0.024* 03/25/2012 56 1.057 0.1 Total Hip(Left) 07/17/2020 64 0.897 -0.4 -0.036* -0.024 05/09/2018 62 0.922 -0.2 -0.012 -0.041* 05/29/2015 59 0.963 0.2 0.029* 0.029* 03/25/2012 56 0.934 -0.1 Total Hip(Right) 07/17/2020 64 0.921 -0.2 -0.051* -0.015 05/09/2018 62 0.935 -0.1 -0.036* -0.034* 05/29/2015 59 0.969 0.2 -0.002 -0.002 03/25/2012 56 0.971 0.2 *Denotes significance at 95% confidence level, LSC for AP Spine = 0.022 g/cm2, LSC for Total Hip = 0.027 g/cm2 Clinical Information Provided by Patient: Smokes Has the following medical conditions: Cancer, Inflammatory bowel diseases, Hysterectomy Patient maximum height was 66 Menopause Age: 37 No regular weight bearing exercise Drinks caffeinated beverages Onset of menses at age 14 Number of children 1 Impression: The patient has normal bone mass. The patient has risk factors, including: smoking. No significant bone loss was observed. Discussion: BONE DENSITY IS ABOVE THE MINIMUM DESIRABLE LEVEL AT ALL SKELETAL S
--- NOTE | ~2020-07-17 | MM_ITS ---
EXAMINATION: MM screening mac BI w kim HISTORY: Screening mammogram TECHNIQUE: Craniocaudal and mediolateral oblique 3-D tomosynthesis images were obtained and synthetic 2-D images were generated. CAD analysis was submitted and interpreted. COMPARISON: 05/05/2018, 05/11/2017 bilateral digital screening mammogram examinations 04/14/2016 bilateral diagnostic digital mammogram 04/09/2015 bilateral digital screening mammogram BREAST PARENCHYMAL COMPOSITION: The breasts are heterogeneously dense, which may obscure small masses . FINDINGS: Postoperative change from partial mastectomy for right breast cancer is again noted, with s ome fat necrosis and associated benign calcification, posterior inner upper right breast. There is increased density and apparently new architectural distortion anteriorly in the upper inner right breast (craniocaudal Tomosynthesis image 42/64; MLO Tomosynthesis image 40/74). Diagnostic righ t mammogram and right breast ultrasound examination are recommended. Otherwise there is no evidence of suspicious mass, calcification, or architectural distortion to sugg est malignancy in either breast. There has been no other suspicious interval change. IMPRESSION: 1. New soft tissue mass and architectural distortion suggested in the upper inner right breast; diagn ostic right mammogram and right breast ultrasound examination are recommended. 2. Recommend routine screening mammography in one year. BI-RADS Category 0: Incomplete: Needs additional imaging evaluation. Reviewed, dictated and finalized at [facility]. ACY OFFICER IMPRESSION: 1. New soft tissue mass and architectural distortion suggested in the upper inn er right breast; diagnostic right mammogram and right breast ultrasound examina tion are recommended. 2. Recommend routine screening mammography in one year. BI-RADS Category 0: Incomplete: Needs additional imaging evaluation.
== END ==
PROVIDERS: PCP Internal Medicine; Visit Provider Obstetrics & Gynecology
DX: Z12.31 Encounter for screening mammogram for malignant neoplasm of breast (principal); Z13.820 Encounter for screening for osteoporosis; Z78.0 Asymptomatic menopausal state; R92.8 Other abnormal and inconclusive findings on diagnostic imaging of breast
CPT/HCPCS: 77063; 77067; 77080

== ENCOUNTER 2020-08-03 00:39 | Outpatient (CLI) | payer BC, SELFPAY ==
[2020-08-03 20:15] LABS: SARS-CoV-2 RNA PCR Negative
== END 2020-08-03 00:40 | disposition home or self-care (01) ==
LOC: ANHCOVIDDT 00:39
PROVIDERS: PCP Internal Medicine; Visit Provider Internal Medicine Gastroenterology
DX: Z01.818 Encounter for other preprocedural examination (principal); Z20.828 Contact with and (suspected) exposure to other viral communicable diseases
CPT/HCPCS: 87635; C9803; U0003

== ENCOUNTER 2020-08-07 00:29 | Day surgery (SDC) | payer BC, SELFPAY ==
[2020-07-31 13:46] VITALS: BMI 29.9
[2020-08-07 10:34] VITALS: BP 147/82; PULSE 86; RESP 20; TEMP 36.3; O2SAT 98; BMI 30.2
[2020-08-07] MEDS: LACTATED RINGERS 1,000 ML 150 ML IV CONT (10:49)
[2020-08-07 10:50] LABS: Glucose Point of Care 93 (65-105)
--- NOTE | 2020-08-07 10:55 | WPDANESEPPF ---
Anes - Initial Pre Proc Eval Procedure: Operation Date: 08/07/20 11:30 Proposed Procedures p Esophagogastroduodenoscopy - Phan Orozco DO Date/Time: 08/07/20 10:55 Surgeon: Phan Orozco DO Pre Op Diagnosis: GERD, Crohn's Disease Patient Data Age: 65 Gender: F Height: 5 ft 6 in Weight: 84.9 kg Last Vital Signs Temp 97.4 F L 08/07/20 10:34 Pulse 86 08/07/20 10:34 Resp 20 08/07/20 10:34 BP 147/82 H 08/07/20 10:34 Pulse Ox 98 08/07/20 10:34 Allergies Allergy/AdvReac Type Severity Reaction Status Date / Time metronidazole Allergy inflammatio Verified 08/07/20 10:32 n Home Medications Medication Instructions Recorded Confirmed Type calcium carbonate-vitamin D3 1 tablet PO DAILY 02/14/20 08/05/20 History folic acid 1 mg PO DAILY 02/14/20 08/05/20 History lansoprazole 30 mg PO DAILY 02/14/20 08/05/20 History budesonide 9 mg PO DAILY 03/14/20 08/05/20 History blood sugar diagnostic #50 each 03/25/20 08/05/20 Rx lancets 28 gauge #100 each 03/25/20 08/05/20 Rx metformin 500 mg tablet 500 mg PO BID #180 tablet 03/25/20 08/05/20 Rx sitagliptin 50 mg tablet 50 mg PO QAM #90 tablet 03/25/20 08/05/20 Rx mesalamine 1.2 gram tablet,delayed 4.8 gm PO DAILY tablet 04/25/20 08/05/20 History release amlodipine 2.5 mg tablet 2.5 mg PO DAILY #90 tablet 06/05/20 08/05/20 Rx pen needle, diabetic 32 gauge x #100 ea 06/21/20 08/05/20 Rx 5/32 losartan 50 mg tablet 50 mg PO DAILY #90 tablet 08/05/20 08/05/20 Rx Laboratory Tests 08/07/20 10:47 POC Capillary Glucose 93 mg/dl mg/dl (65-105) Patient hx anesthesia problems: none Family hx anesthesia problems: none PMFSH Past Medical History Medical History (Updated 08/07/20 @ 10:55 by aMtheus Urena MD) Breast cancer Invasive ductal carcinoma status post right partial mastectomy May 2013 status post radiation treatment Crohn's disease Diabetes mellitus Essential hypertension GERD (gastroesophageal reflux disease) Intestinal metaplasia of gastric mucosa Thyroid goiter Tobacco abuse Vitamin deficiency Surgical History Surgical History (Updated 03/25/20 @ 07:28 by Rain Tabares [facility]) H/O arthroscopic knee surgery 2014 H/O colonoscopy History of ankle surgery History of esophagogastroduodenoscopy (EGD) History of total right knee replacement Originally performed around [address] Grady S/P breast lumpectomy partial mastectomy due to invasive ductal carcinoma May 2013 S/P small bowel resection Ileal-colectomy for crohn's Family History Family History (Updated 04/25/20 @ 08:30 by Regina Head [facility]) Mother Diabetes mellitus Hypertension Heart disease Sibling Breast cancer sister Carcinoma of colon Son Diabetes mellitus at age 30 Social History Social History (Updated 04/25/20 @ 08:30 by Regina Head [facility]) Social History: Primary care physician: Dr. Resendez Code status: Full code per EMR Smoking packs per day: 1 Smoking cigarettes per day: 20.0 Years smoked: 45 Smoking pack-years: 45.00 Smoking status: Current every day smoker Tobacco type: cigarettes Alcohol intake: never Substance use: unknown Substance use type: unknown Living arrangements: with family Additional living arrangements comments: She is single and lives alone. She had 1 son who at age 30 of complications of diabetes. She has a daughter who is now 30 and has medical conditions but the patient is unaware of what they are. Additional occupation/education comments: She works in a [employer]. Spiritual care concerns: No Anes - Eval Final PreProcedure Day of Procedure 08/07/20 10:55 Patient weight: overweight Heart: regular rate and rhythm Lungs: clear to auscultation Airway: Mallampati scale class II Neurological: alert and oriented Last oral intake: >/= 8 hours ASA classification: III Emergent: no Anesthetic
--- NOTE | 2020-08-07 11:39 | PM.IMHP ---
H&P: [facility] History of Present Illness Date/Time: 08/07/20 11:39 See below. Cheif Complaint: EGD. Narrative: Reason for visit is EGD. Very pleasant lady seen in consultation at request of the primary physician. Impression: GERD. Patient has a history of intestinal metaplasia of the gastric mucosa. Crohn's disease. HTN. DM. Breast cancer. Status post mastectomy with radiation treatment. Tobacco abuse. Recommendation: EGD. History: Very pleasant lady has a history of Crohn's disease and reflux disease. Reflux disease well controlled. She has a history of intestinal metaplasia of the gastric mucosa per the chart. She is here for endoscopic evaluation. Physical examination: General: very pleasant patient in no acute distress. HEENT: Head was normocephalic sclerae is clear mouth without masses neck was supple. Heart: Rate rhythm regular without S3 or S4. Lungs: CTA. Abdomen: Soft with no guarding or rigidity. Bowel sounds were active. Neurologic: Cranial nerves 2 through 12 intact. No focal defects. No clonus. Musculoskeletal system: Revealed no joint tenderness or swelling no muscle atrophy. Extremities: Reveal no significant edema. Skin: Warm and dry with normal turgor. Mental status: intact. Patient is alert and oriented. Review of Systems Review of Systems: All systems reviewed & are unremarkable except as noted in HPI and below PMFSH Past Medical History Medical History (Updated 08/07/20 @ 10:55 by Matheus Urena MD) Breast cancer Invasive ductal carcinoma status post right partial mastectomy May 2013 status post radiation treatment Crohn's disease Diabetes mellitus Essential hypertension GERD (gastroesophageal reflux disease) Intestinal metaplasia of gastric mucosa Thyroid goiter Tobacco abuse Vitamin deficiency Surgical History Surgical History (Updated 03/25/20 @ 07:28 by Rain Tabares [facility]) H/O arthroscopic knee surgery 2014 H/O colonoscopy History of ankle surgery History of esophagogastroduodenoscopy (EGD) History of total right knee replacement Originally performed around [address] Grady S/P breast lumpectomy partial mastectomy due to invasive ductal carcinoma May 2013 S/P small bowel resection Ileal-colectomy for crohn's Family History Family History (Updated 04/25/20 @ 08:30 by Regina Head [facility]) Mother Diabetes mellitus Hypertension Heart disease Sibling Breast cancer sister Carcinoma of colon Son Diabetes mellitus at age 30 Social History Social History (Updated 04/25/20 @ 08:30 by Regina Head [facility]) Social History: Primary care physician: Dr. Resendez Code status: Full code per EMR Smoking packs per day: 1 Smoking cigarettes per day: 20.0 Years smoked: 45 Smoking pack-years: 45.00 Smoking status: Current every day smoker Tobacco type: cigarettes Alcohol intake: never Substance use: unknown Substance use type: unknown Living arrangements: with family Additional living arrangements comments: She is single and lives alone. She had 1 son who at age 30 of complications of diabetes. She has a daughter who is now 30 and has medical conditions but the patient is unaware of what they are. Additional occupation/education comments: She works in a [employer]. Spiritual care concerns: No Meds Home Medications and Allergies Home Medications Medication Instructions Recorded Confirmed Type calcium carbonate-vitamin D3 1 tablet PO DAILY 02/14/20 08/05/20 History folic acid 1 mg PO DAILY 02/14/20 08/05/20 History lansoprazole 30 mg PO DAILY 02/14/20 08/05/20 History budesonide 9 mg PO DAILY 03/14/20 08/05/20 History blood sugar diagnostic #50 each 03/25/20 08/05/20 Rx lancets 28 gauge #100 each 03/25/20 08/05/20 Rx metformin 500 mg tablet 500 mg PO BID #180 tablet 03/25/20 08/05/20 Rx sitagliptin 50 mg tablet 50 mg P
[2020-08-07] MEDS: BENZOCAINE (*SP) 60 ML SPRAY CAN (HURRICAINE) 1 SPRAY MUCOUS MEM (11:42)
[2020-08-07 11:58] VITALS: BP 124/73; PULSE 78; RESP 23; O2SAT 100
[2020-08-07 12:08] VITALS: BP 132/77; PULSE 70; RESP 19; O2SAT 98
[2020-08-07 12:18] VITALS: BP 145/83; PULSE 73; RESP 20; O2SAT 98
[2020-08-07 12:20] LABS: Glucose Point of Care 88 (65-105)
== END 2020-08-07 12:36 | disposition home or self-care (01) ==
PROVIDERS: PCP Internal Medicine; Visit Provider Internal Medicine Gastroenterology
PROC: 0DJ08ZZ Inspection of Upper Intestinal Tract, Via Natural or Artificial Opening Endoscopic (ICD-10-PCS; CPT 43235; principal; 2020-08-07 11:30)
DX: K21.9 Gastro-esophageal reflux disease without esophagitis (principal); K29.50 Unspecified chronic gastritis without bleeding; K50.90 Crohn's disease, unspecified, without complications; E11.9 Type 2 diabetes mellitus without complications; I10 Essential (primary) hypertension; E04.9 Nontoxic goiter, unspecified; Z92.3 Personal history of irradiation; Z85.3 Personal history of malignant neoplasm of breast; E56.9 Vitamin deficiency, unspecified; F17.210 Nicotine dependence, cigarettes, uncomplicated; Z79.84 Long term (current) use of oral hypoglycemic drugs; Z90.49 Acquired absence of other specified parts of digestive tract
CPT/HCPCS: 43239; 87081; 88305; J7120

== ENCOUNTER → 2020-08-19 14:21 | Outpatient (CLI) | payer BC, SELFPAY ==
--- NOTE | ~2020-08-19 | MMUS_ITS ---
EXAMINATION: MM diagnostic mac RT w kim, US breast RT complete HISTORY: Follow-up right breast asymmetry TECHNIQUE: Additional 3-D tomosynthesis images of the right breast were performed and synthetic 2-D i mages were generated. CAD analysis was submitted and interpreted. High resolution right whole breast ultrasound was performed. COMPARISON: Comparison to multiple prior studies sequentially, with oldest reviewed study dated 04/09. BREAST PARENCHYMAL COMPOSITION: The breasts are heterogenously dense, which may obscure small masses. FINDINGS: MAMMOGRAPHIC FINDINGS: There is architectural distortion in the medial aspect of the right breast. There are tissue markers in the upper inner quadrant from previous biopsy. ULTRASOUND: Right breast ultrasound: At 1:00, 5 cm from the nipple, there is a hypoechoic mass measuring 8 x 6 x 6 mm with posterior shado wing. There are focal internal echoes. This may correspond to areas of previous biopsy seen on mammog bereket. At 2:00, 3 cm from the nipple there is an irregular shaped mass which is predominantly hypoech oic with posterior shadowing. There is an tight parallel configuration. This mass measures 10 x 7 x 8 mm. No internal vascularity. IMPRESSION: 1. Irregular shaped hypoechoic mass of the right breast at 2:00, 3 cm from the nipple measuring 10 x 7 x 8 mm. Ultrasound-guided right breast biopsy recommended. 2. Hypoechoic mass at 1:00, 5 cm from the nipple likely corresponds to previous biopsy location. Jay Jay mmend short-term follow-up in 6 months to assess stability of this area of abnormality. BI-RADS category 4, suspicious findings. Reviewed, dictated and finalized at location A. [facility] IMPRESSION: 1. Irregular shaped hypoechoic mass of the right breast at 2:00, 3 cm from the nipple measuring 10 x 7 x 8 mm. Ultrasound-guided right breast biopsy recommend ed. 2. Hypoechoic mass at 1:00, 5 cm from the nipple likely corresponds to previous biopsy location. Recommend short-term follow-up in 6 months to assess stabilit y of this area of abnormality. BI-RADS category 4, suspicious findings.
== END ==
PROVIDERS: PCP Internal Medicine; Visit Provider Obstetrics & Gynecology
DX: R92.8 Other abnormal and inconclusive findings on diagnostic imaging of breast (principal)
CPT/HCPCS: 76641; 77061; 77065; G0279

== ENCOUNTER 2021-02-26 13:25 | Outpatient (CLI) | payer BC, SELFPAY ==
--- NOTE | ~2021-02-26 | CT_ITS ---
EXAMINATION: CT lung screening DATE: 02/26/2021 14:09 INDICATION: Nicotine dependency TECHNIQUE: Computed tomography (CT) of the chest was performed without intravenous contrast. The dose -length product was 81.79 mGy-cm. Automated exposure control and iterative reconstruction technique w ere employed. COMPARISON: None FINDINGS: No significant pleural or pericardial effusion. No thoracic lymphadenopathy. Mild atheroscl erosis of the aorta and coronary arteries. Upper abdomen is unremarkable. 3 mm nodule right upper lob e. There are several small nodules measuring 2 mm or less in the subpleural location. There are a few scattered calcified granulomas. No pneumothorax. No endobronchial lesions. Mild lower cervical and t horacic spondylosis. No focal lytic or blastic lesions. IMPRESSION: 1. Lung-RADS category 2: Benign appearance or behavior. Continue annual screening with noncontrast lo w-dose chest CT in 12 months. Reviewed, dictated and finalized at location A. IMPRESSION: 1. Lung-RADS category 2: Benign appearance or behavior. Continue annual screeni ng with noncontrast low-dose chest CT in 12 months.
== END 2021-02-26 13:26 | disposition home or self-care (01) ==
PROVIDERS: PCP Internal Medicine; Visit Provider Clinical Nurse Specialist
DX: Z12.2 Encounter for screening for malignant neoplasm of respiratory organs (principal); Z87.891 Personal history of nicotine dependence
CPT/HCPCS: 71271

== ENCOUNTER → 2021-07-19 08:52 | Outpatient (CLI) | payer BC, SELFPAY ==
--- NOTE | ~2021-07-19 | MM_ITS ---
EXAMINATION: MM screening mac BI w kim HISTORY: Screening TECHNIQUE: Craniocaudal and mediolateral oblique 3-D tomosynthesis images were obtained and synthetic 2-D images were generated. CAD analysis was submitted and interpreted. COMPARISON: 08/19/2020 diagnostic right mammogram and complete right breast ultrasound 07/17/2020, 05/07/2018 bilateral screening mammogram examinations BREAST PARENCHYMAL COMPOSITION: The breasts are heterogeneously dense, which may obscure small masses . FINDINGS: Biopsy markers are noted in the upper inner quadrant of the right breast; history of 2 prio r benign right breast biopsies At the area of breast biopsy markers are some calcification, likely due to calcified fat necrosis. No interval suspicious mass or new architectural distortion, malignant calcification, skin thickening or retraction of either breast is detected. No significant new or developing density is noted otherw ise. There is no evidence of suspicious mass, calcification, or architectural distortion to suggest malig samuel in either breast. There has been no suspicious interval change. IMPRESSION: 1. No mammographic evidence of malignancy. 2. Recommend routine screening mammography in one year. BI-RADS Category 2: Benign finding(s). Reviewed, dictated and finalized at location A. A ASSOCIATE
== END ==
PROVIDERS: Visit Provider Obstetrics & Gynecology
DX: Z12.31 Encounter for screening mammogram for malignant neoplasm of breast (principal)
CPT/HCPCS: 77063; 77067

== ENCOUNTER 2022-04-28 11:05 | Outpatient (CLI) | payer OTHER, SELFPAY ==
--- NOTE | ~2022-04-28 | CT_ITS ---
EXAMINATION: CT lung screening DATE: 04/28/2022 11:26 INDICATION: Personal history of nicotine dependence, current smoker with 40 pack year history TECHNIQUE: Computed tomography (CT) of the chest was performed without intravenous contrast. The dose -length product (DLP) was 84.52 mGy-cm. Automated exposure control and iterative reconstruction techn ique were employed. COMPARISON: 02/26/2021 FINDINGS: There is a stable 3 mm nodule of the right upper lobe. The lungs are free of acute opacitie s. No pleural effusion or pneumothorax. No pathologically enlarged thoracic lymph nodes are identifie d. The heart size is normal. Calcified coronary artery atherosclerosis is noted. There are bridging o steophytes at multiple levels in the spine, consistent with diffuse idiopathic skeletal hyperostosis (DISH). There is a possible 2.3 cm mass of the right breast. IMPRESSION: 1. Lung-RADS category 2S: Benign appearance or behavior. Continue annual screening with noncontrast l ow-dose chest CT in 12 months. 2. Possible right breast mass. Correlation with diagnostic mammogram and possible ultrasound are fauzia mmended. These findings and recommendations were discussed with SRINI Florence at 0835 hours on 022. Reviewed, dictated and finalized at location B. IMPRESSION: 1. Lung-RADS category 2S: Benign appearance or behavior. Continue annual screen ing with noncontrast low-dose chest CT in 12 months. 2. Possible right breast mass. Correlation with diagnostic mammogram and possib le ultrasound are recommended. These findings and recommendations were discussed with SRINI Florence at 0835 hours on 04/29/2022.
== END 2022-04-28 11:06 | disposition home or self-care (01) ==
PROVIDERS: PCP Internal Medicine; Visit Provider Clinical Nurse Specialist
DX: Z12.2 Encounter for screening for malignant neoplasm of respiratory organs (principal); Z87.891 Personal history of nicotine dependence; R91.8 Other nonspecific abnormal finding of lung field
CPT/HCPCS: 71271

== ENCOUNTER → 2022-05-13 08:44 | Outpatient (CLI) | payer OTHER, SELFPAY ==
--- NOTE | ~2022-05-13 | MMUS_ITS ---
EXAMINATION: MM diagnostic mac BI w kim, US breast RT limited HISTORY: Patient with history of right breast cancer with possible right breast mass seen on chest CT TECHNIQUE: Craniocaudal, mediolateral, and mediolateral oblique 3-D tomosynthesis images of the breas ts were performed and synthetic 2-D images were generated. CAD analysis was submitted and interpreted . High resolution limited right breast ultrasound was performed. COMPARISON: 07/19/2021, 08/19/2020, 07/17/2020, 05/07/2018 BREAST PARENCHYMAL COMPOSITION: The breasts are heterogeneously dense, which may obscure small masses . FINDINGS: MAMMOGRAPHIC FINDINGS: Left breast: There is no suspicious mass, calcification, or architectural distortion to suggest amandeep gnancy. There has been no suspicious interval change. Right breast: There are stable lumpectomy changes in the posterior third of inner breast at the 3:00 location. There is a subtle 2.1 cm oval, obscured, equal density mass in the middle third of the slig htly upper, slightly inner breast at the 2:00 location 2 cm from the nipple. ULTRASOUND: There is a 2.5 x 1.4 cm oval, circumscribed, parallel, anechoic mass with no posterior features or in ternal vascularity at the 1:00 location 2 cm from the nipple in the right breast corresponding to the mammographic finding in question. The internal margins are mildly irregular. Lumpectomy changes are noted at the 1:00 location 7 cm from the nipple. IMPRESSION: 1. Probable postoperative hematoma/seroma at the 1:00 location 2 cm from the nipple on the right [address]. 2. Recommend 6 month follow-up right diagnostic mammogram and ultrasound. BI-RADS category 3, probably benign findings. Reviewed, dictated and finalized at location A. IMPRESSION: 1. Probable postoperative hematoma/seroma at the 1:00 location 2 cm from the ni pple on the right breast. 2. Recommend 6 month follow-up right diagnostic mammogram and ultrasound. BI-RADS category 3, probably benign findings.
== END ==
PROVIDERS: PCP Internal Medicine; Visit Provider Clinical Nurse Specialist
DX: R92.8 Other abnormal and inconclusive findings on diagnostic imaging of breast (principal)
CPT/HCPCS: 76642; 77062; 77066; G0279

== ENCOUNTER 2022-10-27 11:25 | Outpatient (CLI) | payer OTHER, SELFPAY ==
--- NOTE | ~2022-10-27 | US_ITS ---
EXAMINATION: US thyroid DATE: 10/27/2022 12:37 INDICATION: Nontoxic goiter, unspecified. TECHNIQUE: Multiple ultrasound images of the thyroid were obtained. COMPARISON: Ultrasound 11/30/2018 FINDINGS: The right thyroid lobe measures 4.8 x 2.2 x 1.6 cm. The left thyroid lobe measures 4.2 x 2.4 x 1.5 c m. The thyroid demonstrates coarsened echotexture and increased vascularity. In the right thyroid lo be, there is a 5 mm solid, hypoechoic, wider than tall nodule with ill-defined margin without echogen ic foci (TI-RADS TR4). IMPRESSION: 1. Heterogeneous, hypervascular thyroid, likely chronic lymphocytic (Guero) thyroiditis. 2. Small thyroid nodule, likely not clinically significant. No follow-up is needed. Reviewed, dictated and finalized at location A. ET SPRINKLER IMPRESSION: 1. Heterogeneous, hypervascular thyroid, likely chronic lymphocytic (Guero) thyroiditis. 2. Small thyroid nodule, likely not clinically significant. No follow-up is nee ded.
== END 2022-10-27 11:26 | disposition home or self-care (01) ==
LOC: ANHIMG 11:27
PROVIDERS: PCP Internal Medicine; Visit Provider Clinical Nurse Specialist
DX: E04.1 Nontoxic single thyroid nodule (principal)
CPT/HCPCS: 76536

== ENCOUNTER → 2022-12-09 09:45 | Outpatient (CLI) | payer OTHER, SELFPAY ==
--- NOTE | ~2022-12-09 | MMUS_ITS ---
EXAMINATION: MM diagnostic mac RT w kim, US breast RT limited HISTORY: Six-month follow-up for probably benign right breast mass, history of right lumpectomy. TECHNIQUE: Craniocaudal, mediolateral, and mediolateral oblique 3-D tomosynthesis images of the right breast were performed and synthetic 2-D images were generated. CAD analysis was submitted and interp reted. High resolution limited right breast ultrasound was performed. COMPARISON: 05/13/2022, 07/19/2021, 08/19/2020 BREAST PARENCHYMAL COMPOSITION: The breasts are heterogeneously dense, which may obscure small masses . FINDINGS: MAMMOGRAPHIC FINDINGS: Lumpectomy changes are again noted in the posterior third of the inner right breast at the 3:00 locat ion. Again seen is a stable, subtle obscured equal density mass at the 2:00 location 2 cm from the ni pple. There has been no suspicious interval change. ULTRASOUND: There is a stable 2.5 x 1.3 cm oval, circumscribed, parallel, anechoic mass with no posterior feature s or internal vascularity at the 1:00 location, 2 cm from the nipple. Mildly irregular margins are ag ain noted but unchanged. Also seen are stable lumpectomy changes at the 1:00 location 7 cm from the n ipple. IMPRESSION: 1. Stable, probably benign right breast mass. 2. Recommend 6 month follow-up diagnostic mammogram and ultrasound. BI-RADS category 3, probably benign findings. Reviewed, dictated and finalized at location A. IMPRESSION: 1. Stable, probably benign right breast mass. 2. Recommend 6 month follow-up diagnostic mammogram and ultrasound. BI-RADS category 3, probably benign findings.
== END ==
PROVIDERS: PCP Internal Medicine; Visit Provider Clinical Nurse Specialist
DX: R92.8 Other abnormal and inconclusive findings on diagnostic imaging of breast (principal)
CPT/HCPCS: 76642; 77061; 77065; G0279

== ENCOUNTER 2023-06-07 02:59 | Day surgery (SDC) | payer OTHER, SELFPAY ==
[2023-05-27 13:38] VITALS: BMI 29.9
[2023-06-07 12:32] VITALS: BP 143/81; PULSE 78; RESP 18; TEMP 36.2; O2SAT 100
[2023-06-07] MEDS: LACTATED RINGERS 1,000 ML 150 ML IV CONT (12:43)
--- NOTE | 2023-06-07 13:06 | WPDANESEPPF ---
Anes - Initial Pre Proc Eval Procedure: Operation Date: 06/07/23 13:30 Proposed Procedures p Esophagogastroduodenoscopy & Colonoscopy - Davidson Gómez MD Date/Time: 06/07/23 13:06 Surgeon: Davidson Gómez MD Pre Op Diagnosis: Chronic atrophic gastritis without bleeding Patient Data Age: 67 Gender: F Height: 1.68 m Weight: 84.1 kg Last Vital Signs Temp 97.2 F L 06/07/23 12:32 Pulse 78 06/07/23 12:32 Resp 18 06/07/23 12:32 BP 143/81 H 06/07/23 12:32 Pulse Ox 100 06/07/23 12:32 O2 Del Method Room Air 06/07/23 12:32 Allergies Allergy/AdvReac Type Severity Reaction Status Date / Time metronidazole Allergy inflammatio Verified 06/07/23 12:29 n Home Medications Medication Instructions Recorded Confirmed Type blood sugar diagnostic (OneTouch #50 ea 03/25/20 05/10/23 Rx Verio test strips) vitamin B12 0.5 mg-folic acid 1 mg 1 tablet PO DAILY 02/11/21 05/27/23 History tablet calcium carbonate 600 mg-vitamin 1 tablet PO DAILY #90 tabs 03/16/22 05/27/23 Rx D3 10 mcg (400 unit) tablet lancets 28 gauge (Acti-Dimitri #100 ea 03/16/22 05/10/23 Rx Lancets) lansoprazole 30 mg capsule,delayed 30 mg PO DAILY #90 caps 10/26/22 05/27/23 Rx release amlodipine 2.5 mg tablet See Rx Instructions .Route 04/19/23 05/27/23 Rx .COMPLEX #90 tabs ferrous sulfate 325 mg (65 mg 325 mg PO DAILY #90 tabs 04/19/23 05/27/23 Rx iron) tablet losartan 50 mg tablet See Rx Instructions .Route 04/20/23 05/27/23 Rx .COMPLEX #90 tabs folic acid 1 mg tablet 1 mg PO DAILY #90 tabs 05/10/23 05/27/23 Rx mesalamine 1.2 gram tablet,delayed 4.8 g PO DAILY #360 tabs 05/10/23 05/27/23 Rx release Patient hx anesthesia problems: none Family hx anesthesia problems: none Results Review: All pre-operative results and documents have been reviewed as part of the pre-operative evaluation. [facility] Past Medical History Medical History Anemia Atrophic gastritis Breast cancer Invasive ductal carcinoma status post right partial mastectomy May 2013 status post radiation treatment Breast mass, right Crohn's disease Diabetes mellitus Essential hypertension Gastric intestinal metaplasia without dysplasia, involving multiple sites GERD (gastroesophageal reflux disease) High risk medication use Intestinal metaplasia of gastric mucosa Need for hepatitis B screening test Thyroid goiter Tobacco abuse Vitamin deficiency Surgical History Surgical History H/O arthroscopic knee surgery 2014 H/O colonoscopy History of ankle surgery History of esophagogastroduodenoscopy (EGD) History of total right knee replacement Originally performed around [address] Grady S/P breast lumpectomy partial mastectomy due to invasive ductal carcinoma May 2013 S/P small bowel resection Ileal-colectomy for crohn's Family History Family History Mother Diabetes mellitus Hypertension Heart disease Sibling Breast cancer sister Carcinoma of colon Son Diabetes mellitus at age 30 Social History Social History Social History: Primary care physician: Dr. Resendez Code status: Full code per EMR Smoking packs per day: 1 Smoking cigarettes per day: 20.0 Years smoked: 45 Smoking pack-years: 45.00 Smoking status: Current every day smoker Tobacco type: cigarettes Alcohol intake: never Alcohol use details: she rarely drinks alcohol and only in moderation. Substance use: unknown Substance use type: does not use Living arrangements: other Additional living arrangements comments: She is single and lives alone. She had 1 son who at age 30 of complications of diabetes. She has a daughter who is now 30 a
[2023-06-07] MEDS: BENZOCAINE (*SP) 60 ML SPRAY CAN (HURRICAINE) 1 SPRAY MUCOUS MEM (13:26)
--- NOTE | 2023-06-07 13:27 | WPDHPUPDATE1 ---
History and Physical Update Update Date/Time: 06/07/23 13:27 History and Physical has been reviewed, including an updated exam of the patient. There are NO changes in the patient's condition. Risks, benefits, and alternatives have been discussed and questions answered. Patient agrees to proceed with procedure.
--- NOTE | 2023-06-07 13:38 | SUR.OPER ---
EGD: [id number] COLON: Start 1333
[2023-06-07 13:51] VITALS: BP 98/65; PULSE 89; RESP 23; O2SAT 100
[2023-06-07 14:01] VITALS: BP 108/76; PULSE 96; RESP 19; O2SAT 95
[2023-06-07 14:11] VITALS: BP 118/82; PULSE 87; RESP 18; O2SAT 95
== END 2023-06-07 14:30 | disposition home or self-care (01) ==
PROVIDERS: PCP Internal Medicine; Visit Provider Internal Medicine Gastroenterology
PROC: 0DJ08ZZ Inspection of Upper Intestinal Tract, Via Natural or Artificial Opening Endoscopic (ICD-10-PCS; CPT 43235; principal; 2023-06-07 13:30)
DX: K50.90 Crohn's disease, unspecified, without complications (principal); K57.30 Diverticulosis of large intestine without perforation or abscess without bleeding; K52.9 Noninfective gastroenteritis and colitis, unspecified; K56.609 Unspecified intestinal obstruction, unspecified as to partial versus complete obstruction; K64.8 Other hemorrhoids; Z98.0 Intestinal bypass and anastomosis status; Z90.49 Acquired absence of other specified parts of digestive tract; K31.A29 Gastric intestinal metaplasia with dysplasia, unspecified; K29.50 Unspecified chronic gastritis without bleeding; K21.9 Gastro-esophageal reflux disease without esophagitis; I10 Essential (primary) hypertension; E11.9 Type 2 diabetes mellitus without complications; D64.9 Anemia, unspecified; E55.9 Vitamin D deficiency, unspecified; Z85.3 Personal history of malignant neoplasm of breast; F17.210 Nicotine dependence, cigarettes, uncomplicated
CPT/HCPCS: 45380; 43239; 88305; 88342; J2704; J7120

== ENCOUNTER → 2023-06-14 14:08 | Outpatient (CLI) | payer OTHER, SELFPAY ==
--- NOTE | ~2023-06-14 | CT_ITS ---
EXAMINATION: CT lung screening DATE: 06/14/2023 15:43 INDICATION: Personal history of nicotine dependence TECHNIQUE: Computed tomography (CT) of the chest was performed without intravenous contrast. The dose -length product was 85.46 mGy-cm. Automated exposure control and iterative reconstruction technique w ere employed. COMPARISON: CT dated 04/28/2022 FINDINGS: No significant pleural or pericardial effusion. Heart size normal. No thoracic lymphadenopa thy. There is atherosclerosis of the aorta and coronary arteries. Upper abdomen is unremarkable. Ther e is emphysema. No endobronchial lesions. Mild chronic peripheral interstitial changes in the upper l obes. There is a subsolid 4 mm nodule right upper lobe, image 41. No pneumothorax. Calcified granulom a right upper lobe. There is 3 mm right upper lobe nodule. No new pulmonary nodules or masses. Modera te thoracic spondylosis. IMPRESSION: 1. Lung-RADS category 2: Benign appearance or behavior. Continue annual screening with noncontrast lo w-dose chest CT in 12 months. Reviewed, dictated and finalized at location L. IMPRESSION: 1. Lung-RADS category 2: Benign appearance or behavior. Continue annual screeni ng with noncontrast low-dose chest CT in 12 months.
--- NOTE | ~2023-06-14 | MMUS_ITS ---
EXAMINATION: MM diagnostic mac BI w kim, US breast LT complete, US breast RT limited HISTORY: Six-month follow-up of stable probably benign right 1:00 breast mass. TECHNIQUE: Bilateral full field and left spot ML, MLO and CC 3-D tomosynthesis images were performed and synthetic 2-D images were generated. CAD analysis was submitted and interpreted. High resolution limited right 1:00 breast ultrasound examination and left complete breast ultrasound examination cirilo l 4 quadrants and subareolar area was performed. COMPARISON: 12/09/2022 Diagnostic right mammogram and limited right breast ultrasound 05/13/2022 diagnostic right mammogram and limited right breast ultrasound 07/19/2021 bilateral screening mammogram BREAST PARENCHYMAL COMPOSITION: The breasts are heterogeneously dense, which may obscure small masses . FINDINGS: MAMMOGRAPHIC FINDINGS: Post surgical changes again noted in the posterior upper inner right breast, stable in appearance sin ce 07/19/2021. On the left there is suggestion of architectural distortion in the lower breast on MLO view, not conf irmed on ML or CC views. Otherwise there is no interval suspicious mass, architectural distortion, malignant calcification, sk in thickening or retraction or significant new or developing density of either breast since 1. ULTRASOUND: Right breast: 1:00 2 cm from nipple: 1.4 x 1.9 x 1.6 cm sonolucency with through transmission posterior enhancement this is diminished in size from approximately 1.3 x 2.1 x 2.3 cm on 12/09/2022, further supporting be nign diagnosis 1:00 7 cm from nipple: Approximately 4.7 x 9 x 5 mm irregular hypoechoic area with clip, with posteri or shadowing, previously measuring approximately 5 x 9 x 7 mm on 12/09/2021. This is likely postoperat tammy change from biopsy. Left breast: No suspicious mass or shadowing, cyst or other significant sonographic finding is noted. Same-day second look ultrasound at the lower inner quadrant of the left breast reveals no sonographic abnormality. IMPRESSION: 1. Probably benign lower inner quadrant left breast mammographic asymmetry 2. 6 month diagnostic left mammogram follow-up is recommended, with ultrasound if required 3. Stable postoperative change of right breast. BI-RADS category 3, probably benign findings. Reviewed, dictated and finalized at location A. IMPRESSION: 1. Probably benign lower inner quadrant left breast mammographic asymmetry 2. 6 month diagnostic left mammogram follow-up is recommended, with ultrasound if required 3. Stable postoperative change of right breast. BI-RADS category 3, probably benign findings. IMPRESSION: 1. Probably benign lower inner quadrant left breast mammographic asymmetry 2. 6 month diagnostic left mammogram follow-up is recommended, with ultrasound if required 3. Stable postoperative change of right breast. BI-RADS category 3, probably benign findings.
== END ==
PROVIDERS: PCP Clinical Nurse Specialist; Visit Provider Clinical Nurse Specialist
DX: R92.8 Other abnormal and inconclusive findings on diagnostic imaging of breast (principal); Z87.891 Personal history of nicotine dependence
CPT/HCPCS: 71271; 76641; 76642; 77062; 77066; G0279

== ENCOUNTER 2023-12-13 09:07 | Outpatient (CLI) | payer OTHER, SELFPAY ==
--- NOTE | ~2023-12-13 | MMUS_ITS ---
EXAMINATION: MM diagnostic mac LT w kim, US breast LT complete HISTORY: Probably benign lower inner quadrant left breast mammographic asymmetry; six-month follow-up TECHNIQUE: Full field spot ML, MLO and CC 3-D tomosynthesis images of the left breast were performed and synthetic 2-D images were generated. CAD analysis was submitted and interpreted. High resolution complete left breast ultrasound examination including all 4 quadrants and subareolar area was perform ed. COMPARISON: 06/14/2023 diagnostic bilateral mammogram and complete left breast ultrasound BREAST PARENCHYMAL COMPOSITION: The breasts are heterogeneously dense, which may obscure small masses . FINDINGS: MAMMOGRAPHIC FINDINGS: No suspicious mass, architectural distortion, malignant calcification, skin thickening or retraction or significant new or developing density of the left breast is evident. The heterogeneously dense stroma may obscure masses. Complete left breast ultrasound examination was performed. ULTRASOUND: No suspicious mass or shadowing, cyst or other significant sonographic abnormality of the left breast is detected. IMPRESSION: 1. No evidence of malignancy 2. Routine annual mammographic screening is recommended BI-RADS Category 1: Negative Reviewed, dictated and finalized at location A. IMPRESSION: 1. No evidence of malignancy 2. Routine annual mammographic screening is recommended BI-RADS Category 1: Negative
== END 2023-12-13 09:08 ==
PROVIDERS: PCP Clinical Nurse Specialist; Visit Provider Clinical Nurse Specialist
DX: R92.8 Other abnormal and inconclusive findings on diagnostic imaging of breast (principal)
CPT/HCPCS: 76641; 77061; 77065; G0279

== ENCOUNTER 2024-06-12 09:02 | Outpatient (CLI) | payer OTHER, SELFPAY ==
--- NOTE | ~2024-06-12 | MM_ITS ---
EXAMINATION: MM screening [facility] BI w kim HISTORY: Screening TECHNIQUE: Craniocaudal and mediolateral oblique 3-D tomosynthesis images were obtained and synthetic 2-D images were generated. CAD analysis was submitted and interpreted. COMPARISON: Comparison to multiple prior studies sequentially, with oldest reviewed study dated 07/24. BREAST PARENCHYMAL COMPOSITION: Not dense: There are scattered areas of fibroglandular density. FINDINGS: Stable asymmetry and calcifications in the upper inner quadrant of the right breast, middle third, adjacent to surgical clips. There is no evidence of suspicious mass, calcification, or shea ectural distortion to suggest malignancy in either breast. There has been no suspicious interval [place]. IMPRESSION: 1. No mammographic evidence of malignancy. 2. Recommend routine screening mammography in one year. BI-RADS Category 2: Benign finding(s). Reviewed, dictated and finalized at location B.
== END 2024-06-12 09:03 | disposition home or self-care (01) ==
PROVIDERS: PCP Clinical Nurse Specialist; Visit Provider Clinical Nurse Specialist
DX: Z12.31 Encounter for screening mammogram for malignant neoplasm of breast (principal)
CPT/HCPCS: 77063; 77067

== ENCOUNTER 2024-06-28 08:57 | Outpatient (CLI) | payer OTHER, SELFPAY ==
--- NOTE | ~2024-06-28 | DEXA_ITS ---
Bone Density Report Name: YAMILETH TRENT Age: 68 Sex: Female Ethnicity: White Date of : 1955 Indication: postmenopausal; screening for osteoporosis; hysterectomy; Referring Provider: AGUSTO BROWNE Study: Bone densitometry was performed. Exam Date: June 28, 2024 Accession number: [id number] Bone Density: Region BMD T-score Z-score Classification AP Spine(L1-L4) 1.067 0.2 2.1 Normal Femoral Neck (Left) 0.808 -0.4 1.3 Normal Total Hip (Left) 0.994 0.4 1.8 Normal Femoral Neck (Right) 0.781 -0.6 1.1 Normal Total Hip (Right) 0.937 0.0 1.3 Normal Total Hip Mean 0.966 0.2 1.6 Normal World Health Organization criteria for BMD impression classify patients as: Normal (T-score at or above -1.0), Osteopenia (T-score between -1.0 and -2.5), or Osteoporosis (T-score at or below -2.5). 10-year Fracture Risk: FRAX not reported because: All T-scores for Spine Total, Hip Total, Femoral Neck at or above -1.0 Clinical Information Provided by Patient: Smokes Has used the following medications: Vitamin D, Calcium Has the following medical conditions: Hysterectomy Patient maximum height was 66 Menopause Age: 39 No regular weight bearing exercise Onset of menses at age 14 Number of children 1 Impression: The patient has normal bone mass. The patient has risk factors, including: smoking. Discussion: BONE DENSITY IS ABOVE THE MINIMUM DESIRABLE LEVEL AT ALL SKELETAL SITES TESTED. This patient?s bone mineral density is above the minimum desirable level (T-score -1.0 or better) at all sites measured. The patient should follow a healthful lifestyle (good nutrition with adequate calcium and vitamin D, and appropriate weight-bearing exercise). Follow-Up: Consider repeating this study in 5 years or sooner if there is some new clinical indication. Reported by: DEJAN on 06/28/2024 9:42:00 AM. Reviewed, dictated and finalized at location AJudith MARCANO
== END 2024-06-28 08:58 | disposition home or self-care (01) ==
LOC: ANHIMG 08:58
PROVIDERS: PCP Clinical Nurse Specialist; Visit Provider Clinical Nurse Specialist
DX: Z78.0 Asymptomatic menopausal state (principal)
CPT/HCPCS: 77080

== ENCOUNTER 2024-08-30 09:15 | Outpatient (CLI) | payer OTHER, SELFPAY ==
--- NOTE | ~2024-08-30 | US_ITS ---
EXAMINATION: US soft tissue head and neck DATE: 08/30/2024 09:36 INDICATION: Left neck lump. TECHNIQUE: Multiple ultrasound images of the thyroid were obtained. COMPARISON: Thyroid ultrasound 10/27/2022 FINDINGS: The right thyroid lobe measures 5.1 x 1.4 x 2.0 cm. The left thyroid lobe measures 4.6 x 1.6 x 1.9 c m. The thyroid is diffusely heterogeneous and hyperechoic with increased vascularity. No discrete no dule. There are normal lymph nodes in the neck. IMPRESSION: 1. Heterogeneous, hypervascular thyroid, likely chronic lymphocytic (Guero) thyroiditis. Reviewed, dictated and finalized at location A. AZZO JOURNEYMAN
== END 2024-08-30 09:16 | disposition home or self-care (01) ==
LOC: MICIMG 09:16
PROVIDERS: PCP Internal Medicine; Visit Provider Internal Medicine
DX: R22.1 Localized swelling, mass and lump, neck (principal); E04.9 Nontoxic goiter, unspecified; I10 Essential (primary) hypertension; E11.9 Type 2 diabetes mellitus without complications
CPT/HCPCS: 76536

== ENCOUNTER 2025-05-28 02:06 | Day surgery (SDC) | payer OTHER, SELFPAY ==
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
[2025-05-16 14:19] VITALS: BMI 32.3
--- OUTSIDE RECORDS SUMMARY | 2025-05-28 02:09 | XMS_ITS | Clinical Summary ---
Author Organization [facility] Address [address] [place] [address] Care Team Providers Care Commercial Airline Pilot Name Role Phone Unavailable Primary Care Provider Unavailabl e Source Comments [facility],non-owned Affiliates and Associated Physician Practices is amultiple site organization consisting of ambulatory clinics and hospital sitesin [place], [place], [place] and [place]. This disclosure is being madepursuant to the Care Everywhere program and may not contain all information available regarding this patient. Last updated 18.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 Gender Identity Not on file Sexual Orientation Not on file Plan of Treatment Health Maintenance Due Date Last Done Comments BONE DENSITY TESTING 1955 COLOGUARD (AGES 45-75) - COL ON CA SCREENING 1955 COLON MONITORING 1955 COLONOSCOPY - COLON CA SCREENING 1956 CT COLONOGRAPHY - COLON CA SCREENING 1955 Colorectal Cancer Screening 1955 FIT - COLON CA SCREENING 1956 FLEX SIG - COLON CA SCREENING 1955 LIPID TESTING 1955 MAMMOGRAM 1955 MEDICARE AWV 12 MONTHS 1955 HEPATITIS C SCREENING 07/20/1974 DTAP/TDAP/TD VACCINES (1 - Tdap) 1975 PNEUMOCOCCAL VACCINE 50+ (1 of 1 - PCV) 2006 ZOSTER VACCINE (1 of 2) 2006 DEPRESSION SCREENING 08/23/2024 COVID-19 VACCINE (1 - 2023-2 5 season) 2025 INFLUENZA VACCINE (#1) 2025 Respiratory Syncytial Virus (RSV) Vaccine Pt: or over 60 yrs (1 - 1-dose 75+ series) 2031 HEPATITIS B VACCINE Aged Out No longe r eligible based on patient's age to complete this topic HIB VACCINE Aged Out No longer eligi ble based on patient's age to complete this topic HPV VACCINE Aged Out No longer eligi ble based on patient's age to complete this topic MENINGOCOCCAL (Group B) VACC INE SHARED DECISION-MAKING Aged Out No longer eligibl e based on patient's age to complete this topic MENINGOCOCCAL GROUPS A/C/Y/W VACCINE Aged Out No longer eligible b ased on patient's age to complete this topic Insurance [facility] MED[facility]
--- OUTSIDE RECORDS SUMMARY | 2025-05-28 02:09 | XMS_ITS | Encounter Summary ---
Author Organization [facility] Address 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
--- OUTSIDE RECORDS SUMMARY | 2025-05-28 02:09 | XMS_ITS | Clinical Summary ---
Author Organization [facility] Address [address] [place] [address] Phone Care Team Providers Care Head Control Clerk Name Role Phone John Resendez DO Primary Care Provider Phan Orozco DO Unavailable [phone] Donaldo Allen MD Unavailable Allergies Active Allergy Reactions Criticality Noted Date Comments Metronidazole Other (see Comments) Medium 03/04/2020 Loss of appetite, diarrhea, stomach ache; fatigue Medications calcium carbonate-vitamin D 600-400 MG-UNIT Tablet Take 1 Tab by mouth daily. 90 Tab 3 9 Active metFORMIN (GLUCOPHAGE) 500 MG Tablet daily. 0 Active amLODIPine (NORVASC) 2.5 MG Tablet every morning. 0 Active Januvia 50 MG Tablet daily. 02 0 Active VITAMIN A PALMITATE PO Take by mouth. Active folic acid (FOLVITE) 1 MG Tablet Take 1 Tab by mouth daily. 30 Tab 11 1 Active Cyanocobalamin (B-12 PO) Take by mouth daily. Active losartan (COZAAR) 50 MG Tablet Take by mouth every morning. Active lansoprazole (PREVACID) 30 MG CAPSULE DELAYED RELEASEIndications:G astroesophageal reflux disease without esophagitis TAKE 1 CAPSULE DAILY 90 Capsule 3 2 Active mesalamine (LIALDA) 1.2 GM Tablet Delayed ResponseIndications: Crohn's disease with complication, unspecified gastrointestinal tract location TAKE 4 TABLETS DAILY 120 Tablet 2 2 Active Active Problems Problem Noted Date Diagnosed Date Goiter 01/11/2019 Tobacco abuse 01/11/2019 Elevated blood pressure reading 01/11/2019 Obesity (BMI 30-39.9) 01/11/2019 History of breast cancer 09/09/2017 Crohn's disease with complication 08/27/2016 Malignant neoplasm of right female breast 2014 Family History Medical History Relation Name Comments Diabetes Brother Diabetes Mother Heart Disease Mother Hypertension Mother Cancer Sister colon Colon Cancer Sister Diabetes Sister Hypertension Sister Heart Disease Son Kidney Disease Son Relation Name Status Comments Brother Father Mother Sister Son Social History Tobacco Use Types Packs/Day Years Used Date Smoking Tobacco: Every Day Cigarettes 1 42 Smokeless Tobacco: Never Tobacco Cessation:Ready to Q uit: No; Counseling Given: No Alcohol Use Standard Drinks/Week Comments No 0 (1 standard drink = 0.6 oz pur e alcohol) Sexually Active Control Partners Comments Not Currently Male Comments No Sex and Gender Information Value Date Recorded Sex Assigned at Not on file Legal Sex Female 12:30 AM CDT Gender Identity Not on file Sexual Orientation Not on file Last Filed Vital Signs Vital Sign Reading Time Taken Comments Blood Pressure 111/59 01/21/2022 12:32 PM CDT Pulse 88 01/21/2022 12:32 PM CDT Temperature 37 C (98.6 F) 01/21/2022 10:05 AM CDT Respiratory Rate 19 01/21/2022 12:32 PM CDT Oxygen Saturation 95% 01/21/2022 12:32 PM CDT Inhaled Oxygen Concentration - - Weight 80.3 kg (177 lb) 12/31/2021 1:00 PM CDT Height 167.6 cm (5' 6) 12/31/2021 1:00 PM CDT Body Mass Index 28.57 12/31/2021 1:00 PM CDT Plan of Treatment Health Maintenance Due Date Last Done Comments TdaP Immunization 1955 Pneumococcal Immunization (50+ years) (1 of 2 - PCV) 1975 Zoster Immunization (1 of 2) 1975 Cologuard 2001 Immunochemical Fecal Occult Blood 2001 Mammogram 05/01/2018 05/01/2017, 04/14/2016 Colonoscopy 01/21/2023 01/21/2022, 07/0 08/2019, 02/10/2018, Additional history exists Colorectal Cancer Screening 01/21/2023 Influenza Immunization (#1) 2025 SARS-COV-2 Immunization ( season) 2025 01/29/2022, 04/10/2021, 03/20/2021 Respiratory Syncytial Virus (RSV) Immunization (Adult) (1 - 1-dose 75+ series) 2031 DEXA Bone Density Discontinued 07/17/2020, , 06/08/2015, Additional history exists Hepatitis C Virus (HCV) Screening Completed 01/21/2022, 05/05/2018, 10/26/2016 Hepatitis B Immunization Aged Out No longer eligible based on patient's age to complete this topic Human Papillomavirus (HPV) Immunization Aged Out No longer eligible based on patient's age to complete this topic Meningococcal Immunization (ACWY) Aged Out No longer eligible based on patient's age to complete this topic Rotavirus Immunization Aged Out No lo nger eligible based on patient's age to complete this topic Procedures Procedure Name Priority Date/Time Associated Diagnosis Comments HEPATITIS C ANTIBODY Routine 01/21/2022 1:17 PM CDT Encounter for preprocedure screening laboratory testing for COVID-19 [facility] BONE DENSITOMETRY AXIAL SKELETON Routine 07/17/2020 Crohn's disease of both small and large intestine without complication (HCC) High risk medication use Vitamin D deficiency HM COLONOSCOPY Routine 02/21/2020 [place] DIAG BILATERAL DIGITAL W CAD W YOU Routine 05/01/2017 from Last 3 Months or Most Recently Relevant to Health Maintenance Results * HEPATITIS C ANTIBODY (01/21/2022 1:17 PM CDT) hepatitis C antibody 0.13 <1 S/CO [facility] ARCH [id number] B 01/21/2022 11:02 PM CDT [facility] Comment: Signal/Cutoff ratio < 0.79 is Nondetected Signal/Cutoff ratio 0.80-0.99 is Grayzone Signal/Cutoff ratio > 0.99 is Detected Supplemental assays are recommended if signal/cutoff ratio is >/=1.00. Signal/cutoff ratio result >/= 5.00 is 97% predictive of positivity for recombinant immunoblot assay (RIBA) and will be reported to the [place] Department of Public Health as required. Blood Venipuncture / Unknown 01/21/2022 1:17 PM CDT 01/21/2022 1:18 PM CDT Donaldo Allen MD CHEMISTRY ORDERABLES Final Resu lt [facility] [address] [place] [address], [place] * [facility] BONE DENSITOMETRY AXIAL SKELETON (07/17/2020) Anatomical Region Laterality Modality BODY N/A Other Phan Orozco DO IMG DEXA ORDERABLES Final Resul t * HM COLONOSCOPY (02/21/2020) Phan Orozco DO PROCEDURE/MINOR SURGICAL ORDERA BLES Final Result * [facility] DIAG BILATERAL DIGITAL W CAD W YOU (05/01/2017) Anatomical Region Laterality Modality breast Bilateral Mammography Vasile Neri MD IMG MAMMO ORDERABLES Final Result from Last 3 Months or Most Recently Relevant to Health Maintenance Care Teams Head Control Clerk Relationship Specialty Start Date End Date John Resendez DO [address] [place] [address] [address] [place] [id number] PCP - General Internal Medicine 08/01/15 Phan Orozco DO [address] [place] [address] [address] [place] [address] Gastroenterology 10/15/16 Donaldo Allen MD [address] [place] [address] Consulting Physician Gastroenterology 12/08/21
--- OUTSIDE RECORDS SUMMARY | 2025-05-28 02:09 | XMS_ITS | Clinical Summary ---
Author Organization [facility] Address [address] [place] [address] Phone Care Team Providers Care Mold Making Supervisor Name Role Phone Unavailable Primary Care Provider Unavailabl e Allergies No known active allergies Medications ferrous fumarate (FERRETTS) 325 mg (106 mg iron) Tablet Take 325 mg by mouth. Active budesonide (ENTOCORT EC) 3 mg Enteric Coated 24 hour capsule Take 3 mg by mouth daily. Active lansoprazole (PREVACID) 30 mg Capsule, Delayed Release(E.C.) Take 30 mg by mouth daily. Active calcium carbonate + vitamin D (CALTRATE+D) 600 mg(1,500mg) -400 unit Tablet Take by mouth. Active mesalamine (LIALDA) 1.2 gram Tablet, Delayed Release (E.C.) Take 1,200 mg by mouth daily. Active folic acid (FOLVITE) 1 mg tablet Take 1 mg by mouth daily. Active ferrous sulfate 325 mg (65 mg iron) tablet Take 325 mg by mouth 2 times daily . Active HYDROcodone-irina taminophen (NORCO) 5-325 mg tabletIndicatio ns:Full thickness burn of left ankle, initial encounter Take 1 Tablet by mouth every 6 hours as needed for moderate pain. 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 Gender Identity Not on file Sexual Orientation Not on file Last Filed Vital Signs Vital Sign Reading Time Taken Comments Blood Pressure 140/80 04/12/2019 11:33 AM CDT Pulse 84 01/11/2019 3:40 PM CDT Temperature 36.6 C (97.8 F) 01/11/2019 3:40 PM CDT Respiratory Rate 20 01/11/2019 3:40 PM CDT Oxygen Saturation 94% 01/11/2019 3:40 PM CDT Inhaled Oxygen Concentration - - Weight 93 kg (205 lb) 04/12/2019 11:33 AM CDT Height 167.6 cm (5' 6) 04/12/2019 11:33 AM CDT Body Mass Index 33.09 04/12/2019 11:33 AM CDT Plan of Treatment Health Maintenance Due Date Last Done Comments DTAP/TDAP/TD VACCINES (1 - Tdap) 1975 PNEUMOCOCCAL VACCINE 50+ YEARS (1 of 2 - PCV) 07/24/19 75 BREAST CANCER SCREENING 1996 COLORECTAL SCREENING 2001 Colorectal Cancer Screening 2001 FIT-DNA Q 3 years 2001 FIT/FOBT Q 1 year 2001 Flex Sig/CT Colonography Q 5 years 2001 ZOSTER VACCINE (1 of 2) 2006 OSTEOPOROSIS SCREENING 2021 INFLUENZA VACCINE (#1) 2025 RSV VACCINE (60+ or ) (1 - 1-dose 75+ series) 2031 Insurance RX [employer] Work Comp Advance Directives For more information, please contact: [phone] * Full Code (Latest Code Status on File) Date Activated Date Inactivated Comments 01/11/2019 11:39 AM 01/11/2019 6:08 PM
--- OUTSIDE RECORDS SUMMARY | 2025-05-28 02:09 | XMS_ITS | Clinical Summary ---
Author Organization [facility] Address [address] [place] [address] Care Team Providers Care Finish Saw Operator Name Role Phone John Resendez DO Primary Care Provider [phone] Allergies Active Allergy Reactions Criticality Noted Date Comments Metronidazole Other (See comments) Medium 03/04/2020 Loss of appetite, diarrhea, stomach ache; fatigue Medications amLODIPine (NORVASC) 2.5 mg tabletIndication s:hypertension Take 2.5 mg by mouth every morning 1 Active anastrozole (ARIMIDEX) 1 mg tablet Take 1 mg by mouth every morning 4 Active budesonide EC (ENTOCORT EC) 3 mg 24 hr capsuleIndicatio ns:Crohn's Disease Take 3 mg by mouth 2 (two) times a day 0 Active folic acid (FOLVITE) 1 mg tabletIndication s:supplement Take 1 mg by mouth every morning 0 Active lansoprazole (PREVACID) 30 mg capsuleIndicatio ns:Stress Ulcer Prophylaxis Take 30 mg by mouth every morning 1 Active losartan (COZAAR) 50 mg tabletIndication s:hypertension Take 50 mg by mouth every morning 0 Active mesalamine (LIALDA) 1.2 gram EC tabletIndication s:Ulcerative Colitis Take 1,200 mg by mouth 4 (four) times a day 1 Active metFORMIN (GLUCOPHAGE) 500 mg tabletIndication s:type 2 diabetes mellitus Take 500 mg by mouth every morning 0 Active Tab-A-Nilesh 400 mcg tabletIndication s:Vitamin Deficiency Prevention Take 1 tablet by mouth every morning 0 Active BD Elle 2nd Gen Pen Needle 32 gauge x needle USE TO INJECT INSULIN 0 Active cyanocobalamin, vitamin B-12, (VITAMIN B-12 ORAL)Indications :supplement Take 1 tablet by mouth every morning Active cholecalciferol, vitamin D3, (VITAMIN D3 ORAL)Indications :supplement Take 1 Caplet by mouth every morning Active ferrous sulfate 325 mg (65 mg of elemental iron) tabletIndication s:Iron Deficiency Anemia Take 65 mg of elemental iron by mouth daily with breakfast Active oxyCODONE (ROXICODONE) 5 mg immediate release tabletIndication s:Pain Take 1 tablet (5 mg total) by mouth every 4 (four) hours as needed for pain 8 tablet 1 Active docusate sodium (COLACE) 100 mg capsuleIndicatio ns:constipation Take 1 capsule (100 mg total) by mouth 2 (two) times a day 30 capsule 1 Active Active Problems Problem Noted Date Diagnosed Date Abnormal mammography 09/17/2020 Surgical History Surgery Date Site/Laterality Comments TOTAL ABDOMINAL HYSTERECTOMY W/ BILATERAL SALPINGOOPHORECTOMY 1989' BREAST LUMPECTOMY 08/23/2012 - 08/22/2013 Right T1N0 IDC BREAST BIOPSY 10/01/2020 Right TOTAL KNEE ARTHROPLASTY 08/23/2017 - 08/22/2018 Right FOOT SURGERY 08/23/2015 - 08/22/2016 Right SHOULDER SURGERY 1979' Left Medical History Medical History Date Comments Type 2 diabetes mellitus Breast cancer (HCC) Hypertension Family History Medical History Relation Name Comments Colon cancer Sister Anesthesia problems Neg Hx Relation Name Status Comments Sister Social History Tobacco Use Types Packs/Day Years Used Date Smoking Tobacco: Every Day Cigarettes Smokeless Tobacco: Never AUDIT-C Answer Date Recorded Q1: How often do you have a drink containing alc ohol? Never 11/25/2020 Average Number of Drinks Not on file 021 Frequency of Binge Drinking Not on file 12/2020 Comments No Sex and Gender Information Value Date Recorded Sex Assigned at Not on file Legal Sex Female 7:21 PM PLATEN GRINDER Gender Identity Not on file Sexual Orientation Not on file Obstetrics History Last Filed Vital Signs Vital Sign Reading Time Taken Comments Blood Pressure 143/76 11/25/2020 5:40 PM CDT Pulse 72 11/25/2020 5:50 PM CDT Temperature 36.2 C (97.2 F) 11/25/2020 5:22 PM CDT Respiratory Rate 19 11/25/2020 5:50 PM CDT Oxygen Saturation 99% 11/25/2020 5:50 PM CDT Inhaled Oxygen Concentration - - Weight 83.5 kg (184 lb 1.4 oz) 12/03/2020 2:48 P M CDT Height 167.6 cm (5' 6) 12/03/2020 2:48 PM CDT Body Mass Index 29.71 12/03/2020 2:48 PM CDT Plan of Treatment Not on file Medical Devices Implanted Type Area Part Time Flexible Clerk Device Identifier Shelf Expiration Date Model / Serial / Lot [employer] [id number] Magseed 18ga 7cm Marker Breast Biopsy - [id number] Implanted:Qty: 1 on 11/20/2020 at [facility] [employer] [id number] 02/20/2024 [id number] / / [id number] Insurance [employer] OOS [employer] O[employer] Care Teams Finish Saw Operator Relationship Specialty Start Date End Date John Resendez DO PCP - General Internal Medicine 09/02/20
--- OUTSIDE RECORDS SUMMARY | 2025-05-28 02:09 | XMS_ITS | Encounter Summary ---
Author Organization [facility] Address [address] [place] [address] Phone Care Team Providers Care Afternoon Nanny Name Role Phone John Resendez DO Primary Care Provider Phan Orozco DO Unavailable [phone] Donaldo Allen MD Unavailable [phone] Reason for Visit * Reason Comments Medication Refill Encounter Details Date Type Department Care Team (Late st Contact Info) Description 01/26/2022 Refill [facility] - [facility] - [place] [address] [place] [address] Catarino Tegan Brenda, PAC [address] [place] [address] Medication Refill Social History Tobacco Use Types Packs/Day Years Used Date Smoking Tobacco: Every Day Cigarettes 1 42 Smokeless Tobacco: Never Alcohol Use Standard Drinks/Week Comments No 0 (1 standard drink = 0.6 oz pur e alcohol) Sexually Active Control Partners Comments Not Currently Male Comments No Sex and Gender Information Value Date Recorded Sex Assigned at Not on file Legal Sex Female 12:30 AM CDT Gender Identity Not on file Sexual Orientation Not on file COVID-19 Exposure Response Date Recorded In the last 10 days, have yo u been in contact with someone who was confirmed or suspected to have Coronavirus/COVID-19? No / Unsure 01/20/2022 11:29 AM CDT documented as of this encounter Plan of Treatment Not on file documented as of this encounter Visit Diagnoses Diagnosis Gastroesophageal reflux disease without esophagitis Esophageal reflux documented in this encounter Care Teams Afternoon Nanny Relationship Specialty Start Date End Date John Resendez DO [address] [place] [address] [address] [place] [address] PCP - General Internal Medicine 08/01/15 Phan Orozco DO [address] [place] [address] [address] [place] [address] Gastroenterology 10/15/16 Donaldo Allen MD [address] [place] [address] Consulting Physician Gastroenterology 12/08/21 documented as of this encounter
[2025-05-28 07:27] VITALS: BP 159/80; PULSE 81; RESP 20; TEMP 35.9; O2SAT 100; BMI 31.8
[2025-05-28] MEDS: LACTATED RINGERS 1,000 ML 150 ML IV CONT (07:37)
--- NOTE | 2025-05-28 07:40 | WPDANESEPPF ---
Anes - Initial Pre Proc Eval Procedure: Operation Date: 05/28/25 08:30 Proposed Procedures p EGD & Diagnostic Colonoscopy - Davidson Gómez MD Date/Time: 05/28/25 07:40 Surgeon: Davidson Gómez MD Pre Op Diagnosis: Gastric intestinal metaplasia/Crohns Patient Data Age: 69 Gender: F Height: 1.68 m Weight: 89.6 kg Last Vital Signs Temp 35.9 C L 05/28/25 07:27 Pulse 81 05/28/25 07:27 Resp 20 05/28/25 07:27 BP 159/80 H 05/28/25 07:27 Pulse Ox 100 05/28/25 07:27 O2 Del Method Room Air 05/28/25 07:27 Allergies Allergy/AdvReac Type Severity Reaction Status Date / Time metronidazole Allergy inflammatio Verified 05/28/25 07:24 n Home Medications ?Medication ?Instructions ?Recorded ?Confirmed ?Type blood sugar diagnostic (OneTouch #50 ea 09/28/23 10/30/24 Rx Verio test strips) lancets 28 gauge (Acti-Dimitri #100 ea 09/28/23 10/30/24 Rx Lancets) ustekinumab 130 mg/26 mL 520 mg (104 mL) IV ONCE 10/26/23 10/30/24 Rx intravenous solution (Stelara) cholecalciferol (vitamin D3) 50 50 mcg PO DAILY 12/08/23 05/28/25 History mcg (2,000 unit) tablet mecobalamin (vitamin B12) 1,000 1,000 mcg PO DAILY 12/08/23 05/28/25 History mcg chewable tablet ustekinumab 45 mg/0.5 mL 45 mg subcut 05/01/24 10/30/24 History subcutaneous solution (Stelara) folic acid 1 mg tablet See Rx Instructions .Route 10/23/24 05/28/25 Rx .COMPLEX #90 tabs losartan 50 mg tablet See Rx Instructions .Route 11/16/24 05/28/25 Rx .COMPLEX #90 tabs ferrous sulfate 325 mg (65 mg 325 mg PO DAILY #90 tabs 02/26/25 05/28/25 Rx iron) tablet lansoprazole 30 mg capsule,delayed See Rx Instructions .Route 07/07/25 10/06/25 Rx release .COMPLEX #90 caps Patient hx anesthesia problems: none Family hx anesthesia problems: none Results Review: All pre-operative results and documents have been reviewed as part of the pre-operative evaluation. 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 Grady History of esophagogastroduodenoscopy (EGD) S/P small bowel resection Ileal-colectomy for crohn's H/O colonoscopy History of ankle surgery S/P breast lumpectomy partial mastectomy due to invasive ductal carcinoma May 2013 Family History Family History Mother Diabetes mellitus Hypertension Heart disease Sibling Breast cancer sister Carcinoma of colon Son Diabetes mellitus at age 30 Social History Social History Social History: Primary care physician: Dr. Resendez Code status: Full code per EMR Smoking packs per day: 1 Smoking cigarettes per day: 20.0 Years smoked: 40 Smoking pack-years: 40.00 Smoking status: Current every day smoker Tobacco type: cigarettes Alcohol intake: never Alcohol use details: she rarely drinks alcohol and only in moderation. Substance use: unknown Substance use type: does not use Do You Feel Safe in your Home?: Yes Lack of Transportation: No Lack of Food: Never True Current Housing: I Have Housing Concerned About Future Housing: No Difficulty Paying Gas/Electric Bills: No Difficulty Paying for Meds: No Currently Unemployed: No Education: High School Diploma/GED Difficulty w/ Childcare or Family Care: No Living arrangements: alone Additional living arrangements comments: She is single and lives alone. She had 1 son who at age 30 of complications of diabetes. She has a daughter who is now 30 and has medical conditions but the patient is unaware of what they are. Occupation/Education: occupation Additional occupation/education comments: She works in a [employer]. Anes - Josue Final PreProcedure Day of Procedure 05/28/25 07:40 Patient weight: obese Heart: regular rate and rhythm Lungs: clear to auscultation Airway: Mallampati scale class II Neurological: alert and oriented Last oral intake: >/= 8 hours ASA classification: III Emergent: no Anesthetic plan: proceed Anesthesia type and monitoring: general GIVS and standard monitoring Results Review: All pre-operative results and documents have been reviewed as part of the pre-operative evaluation. Informed Consent: The patient's anesthetic plan and its attendant risks and benefits were discussed with the patient/family/POA. Questions were solicited and answers provided to the satisfaction of the patient/family/POA.
--- NOTE | 2025-05-28 08:34 | PM.HPGS ---
History of Present Illness History of Present Illness Consent: Risks, benefits, and alternatives have been discussed and questions answered. Patient agrees to proceed with procedure. Chief complaint: Gastric intestinal metaplasia/Crohns Narrative: Nichole Santizo is a 69 year old female here for another egd and colonoscopy, last time 2022. History of Crohn's disease of small intestine with history of ileocolonic resection (30 years ago) and ileal stricture along with gastritis with intestinal metaplasia. She used to be on Mesalamine before starting Stelara around November 2023, doing well now, lat colonoscopy noted ulcer at site of anastomosis in ileum. 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 Grady History of esophagogastroduodenoscopy (EGD) S/P small bowel resection Ileal-colectomy for crohn's H/O colonoscopy History of ankle surgery S/P breast lumpectomy partial mastectomy due to invasive ductal carcinoma May 2013 Family History Family History Mother Diabetes mellitus Hypertension Heart disease Sibling Breast cancer sister Carcinoma of colon Son Diabetes mellitus at age 30 Social History Social History Social History: Primary care physician: Dr. Resendez Code status: Full code per EMR Smoking packs per day: 1 Smoking cigarettes per day: 20.0 Years smoked: 40 Smoking pack-years: 40.00 Smoking status: Current every day smoker Tobacco type: cigarettes Alcohol intake: never Alcohol use details: she rarely drinks alcohol and only in moderation. Substance use: unknown Substance use type: does not use Do You Feel Safe in your Home?: Yes Lack of Transportation: No Lack of Food: Never True Current Housing: I Have Housing Concerned About Future Housing: No Difficulty Paying Gas/Electric Bills: No Difficulty Paying for Meds: No Currently Unemployed: No Education: High School Diploma/GED Difficulty w/ Childcare or Family Care: No Living arrangements: alone Additional living arrangements comments: She is single and lives alone. She had 1 son who at age 30 of complications of diabetes. She has a daughter who is now 30 and has medical conditions but the patient is unaware of what they are. Occupation/Education: occupation Additional occupation/education comments: She works in a [employer]. Meds Home Medications and Allergies Home Medications ?Medication ?Instructions ?Recorded ?Confirmed ?Type blood sugar diagnostic (OneTouch #50 ea 09/28/23 10/30/24 Rx Verio test strips) lancets 28 gauge (Acti-Dimitri #100 ea 09/28/23 10/30/24 Rx Lancets) ustekinumab 130 mg/26 mL 520 mg (104 mL) IV ONCE 10/26/23 10/30/24 Rx intravenous solution (Stelara) cholecalciferol (vitamin D3) 50 50 mcg PO DAILY 12/08/23 05/28/25 History mcg (2,000 unit) tablet mecobalamin (vitamin B12) 1,000 1,000 mcg PO DAILY 12/08/23 05/28/25 History mcg chewable tablet ustekinumab 45 mg/0.5 mL 45 mg subcut 05/01/24 10/30/24 History subcutaneous solution (Stelara) folic acid 1 mg tablet See Rx Instructions .Route 10/23/24 05/28/25 Rx .COMPLEX #90 tabs losartan 50 mg tablet See Rx Instructions .Route 11/16/24 05/28/25 Rx .COMPLEX #90 tabs ferrous sulfate 325 mg (65 mg 325 mg PO DAILY #90 tabs 02/26/25 05/28/25 Rx iron) tablet lansoprazole 30 mg capsule,delayed See Rx Instructions .Route 02/26/25 05/28/25 Rx release .COMPLEX #90 caps Allergies Allergy/AdvReac Type Severity Reaction Status Date / Time metronidazole Allergy inflammatio Verified 05/28/25 07:24 n Vital Signs Vital Signs - 24 hr 05/28/25 07:27 Temperature 96.7 F L Pulse Rate 81 Respiratory Rate 20 Blood Pressure 159/80 H Pulse Oximetry 100 Oxygen Delivery Room Air Exam Const: General: comfortable and no acute distress HENMT: Face/Nose/Sinus: Normal nares present Eyes: General: appearance normal, both eyes and all related structures Resp: Auscultation: clear to auscultation bilaterally Cardio: Rate: regular rate Rhythm: regular rhythm GI: Inspection: non-distended GI Palp: Yes Soft to palpation Skin: General skin exam: normal color Extrem: General: normal to inspection Psych: Mental Status: mental status grossly normal Assessment and Plan Assessment and plan (1) Gastric intestinal metaplasia without dysplasia, involving multiple sites: Code(s): K31.A15 - 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
--- NOTE | 2025-05-28 08:48 | SUR.OPER ---
EGD start 840 end 843, Colonoscopy start 847
--- NOTE | 2025-05-28 08:57 | S_PTH ---
PATIENT: Nichole Santizo LOC: [facility] Rand#:[id number] AGE/SX: 69/F ROOM: RE05/28/[address]: Davidson Gómez MD : [id number] BED: DIS: 05/28/2025 SPEC #: [id number] RECD: 05/28/25 10:49 STATUS: NASREEN RENicolas #: [id number] IZAIAH: 05/28/25 08:[address]: Davidson Gómez DEPT: [facility] Surgical RECD BY: Idalmis Correa ENTERED: 05/28/25 10:50 SP TYPE: Surgical OTHR DR: Marybeth Carpenter, ROBBY Tissues: A - Gastric Biopsy B - Gastric Biopsy C - Colon Biopsy D - Colon Biopsy Procedures: Hematoxylin and Eosin Stain Gross and Microscopic Level 4 Synaptoshysin Chromogranin Stain H.Pylori Mib
[2025-05-28 09:01] VITALS: BP 125/76; PULSE 85; RESP 20; O2SAT 100
[2025-05-28 09:10] VITALS: BP 144/82; PULSE 79; RESP 19; O2SAT 100
[2025-05-28 09:20] VITALS: BP 160/89; PULSE 74; RESP 20; O2SAT 100
== END 2025-05-28 09:44 | disposition home or self-care (01) ==
PROVIDERS: PCP Clinical Nurse Specialist; Referring Provider Nurse Practitioner; Visit Provider Internal Medicine Gastroenterology
PROC: 0DJ08ZZ Inspection of Upper Intestinal Tract, Via Natural or Artificial Opening Endoscopic (ICD-10-PCS; CPT 45378; principal; 2025-05-28 08:30)
DX: K29.50 Unspecified chronic gastritis without bleeding (principal); K63.3 Ulcer of intestine; K64.8 Other hemorrhoids; K50.90 Crohn's disease, unspecified, without complications; D64.9 Anemia, unspecified; E11.9 Type 2 diabetes mellitus without complications; I10 Essential (primary) hypertension; E56.9 Vitamin deficiency, unspecified; K21.9 Gastro-esophageal reflux disease without esophagitis; F17.210 Nicotine dependence, cigarettes, uncomplicated; E66.9 Obesity, unspecified; Z68.31 Body mass index [BMI] 31.0-31.9, adult; Z98.890 Other specified postprocedural states; Z98.0 Intestinal bypass and anastomosis status; Z90.49 Acquired absence of other specified parts of digestive tract; Z90.11 Acquired absence of right breast and nipple; Z85.3 Personal history of malignant neoplasm of breast; Z87.19 Personal history of other diseases of the digestive system; Z80.3 Family history of malignant neoplasm of breast; Z80.0 Family history of malignant neoplasm of digestive organs; Z82.49 Family history of ischemic heart disease and other diseases of the circulatory system
CPT/HCPCS: 43239; 45380; 88305; 88342; J1596; J2003; J2704; J7120

== ENCOUNTER 2025-06-04 11:19 | Outpatient (CLI) | payer OTHER, SELFPAY ==
--- NOTE | ~2025-06-04 | US_ITS ---
EXAMINATION: US thyroid DATE: 06/04/2025 11:39 INDICATION: Goiter. TECHNIQUE: Multiple ultrasound images of the thyroid were obtained. COMPARISON: Ultrasound 08/30/2024 FINDINGS: The right thyroid lobe measures 5.1 x 1.9 x 2.1 cm. The left thyroid lobe measures 3.7 x 1.4 x 1.8 cm. The thyroid is diffusely heterogeneous and hypoechoic with increased vascularity. There is a 3 mm nodule in left thyroid lobe, likely not clinically significant. IMPRESSION: 1. Heterogeneous, hypervascular thyroid, consistent with chronic lymphocytic (Guero) thyroiditis. Reviewed, dictated and finalized at location E. IMPRESSION: 1. Heterogeneous, hypervascular thyroid, consistent with chronic lymphocytic (H ashimoto) thyroiditis.
== END 2025-06-04 11:20 | disposition home or self-care (01) ==
PROVIDERS: PCP Clinical Nurse Specialist; Visit Provider Internal Medicine
DX: R93.89 Abnormal findings on diagnostic imaging of other specified body structures (principal); E07.89 Other specified disorders of thyroid; R73.9 Hyperglycemia, unspecified; I10 Essential (primary) hypertension; E55.9 Vitamin D deficiency, unspecified
CPT/HCPCS: 76536

== ENCOUNTER 2025-08-14 08:24 | Outpatient (CLI) | payer OTHER, SELFPAY ==
--- NOTE | ~2025-08-14 | CT_ITS ---
EXAMINATION:CT lung screening DATE: 08/14/2025 08:36 INDICATION: Personal history of nicotine dependence. TECHNIQUE: Computed tomography (CT) of the chest was performed without intravenous contrast. Automated exposure control and iterative reconstruction technique were employed. The dose-length product (DLP) was 129.58 mGy-cm. COMPARISON: Chest CT 06/14/2023 FINDINGS: There is mild emphysema. There is mild atelectasis bilaterally. There is a stable 5 mm nodule in left lower lobe. There is a stable 4 mm nodule in right upper lobe. There is a stable 3 mm nodule in right middle lobe. No pleural effusion. The heart size is normal. There are coronary artery calcifications. No pericardial effusion. There are bridging endplate osteophytes at multiple levels in the spine, consistent with diffuse idiopathic skeletal hyperostosis (DISH). There is moderate thoracic spondylosis. IMPRESSION: 1. Lung-RADS category 2: Benign appearance or behavior. Continue annual screening with noncontrast low-dose chest CT in 12 months. Reviewed, dictated and finalized at location [facility]. [facility] IMPRESSION: 1. Lung-RADS category 2: Benign appearance or behavior. Continue annual screeni ng with noncontrast low-dose chest CT in 12 months.
--- OUTSIDE RECORDS SUMMARY | 2025-08-14 08:31 | XMS_ITS | Clinical Summary ---
Author Organization [facility] Address [address] [place] [address] Phone Care Team Providers Care Plant Worker Name Role Phone John Resendez DO Primary Care Provider Phan Orozco DO Unavailable [phone] Donaldo Allen MD Unavailable [phone] Allergies Active Allergy Reactions Criticality Noted Date [...] Mammogram 05/01/2018 05/01/2017, 04/14/2016 Colonoscopy 01/21/2023 01/21/2022, 06/0 08/2021, 02/21/2020, Additional history exists Colorectal Cancer Screening 01/21/2023 [...] complete this topic Human Papillomavirus (HPV) Immunization (No Doses Required) Completed Meningococcal Immunization (ACWY) Aged Out No longer eligible based on patient's age to complete this topic Rotavirus Immunization Aged Out No lo nger eligible based on patient's age to complete this topic Procedures Procedure Name Priority Date/Time Associated Diagnosis Comments HEPATITIS C ANTIBODY Routine 01/21/2022 1:17 PM CDT Encounter for preprocedure screening laboratory testing for COVID-19 GI IMAGING - COLONOSCOPY Routine 01/21/2022 9:50 AM CDT GUANAKITO BONE DENSITOMETRY AXIAL SKELETON Routine 07/17/2020 Crohn's disease of both small and large intestine without complication (HCC) High risk medication use Vitamin D deficiency GUANAKITO DIAG BILATERAL DIGITAL W CAD W YOU Routine 05/01/2017 from Last 3 Months or Most Recently Relevant to Health Maintenance Results * HEPATITIS C ANTIBODY (01/21/2022 1:17 PM CDT) hepatitis C antibody 0.13 <1 S/CO [facility] ARCH [id number] 01/21/2022 11:02 PM CDT [facility] Comment: Signal/Cutoff ratio < 0.79 is Nondetected Signal/Cutoff ratio 0.80-0.99 is Grayzone Signal/Cutoff ratio > 0.99 is Detected Supplemental assays are recommended if signal/cutoff ratio is >/=1.00. Signal/cutoff ratio result >/= 5.00 is 97% predictive of positivity for recombinant immunoblot assay (RIBA) and will be reported to the [place] Department of Public Health as required. Blood Venipuncture / Unknown 01/21/2022 1:17 PM CDT 01/21/2022 1:18 PM CDT Donaldo Allen MD CHEMISTRY ORDERABLES Final Resu lt [facility] [address] [place] [address], [place] * GI IMAGING - COLONOSCOPY (01/21/2022 9:50 AM CDT) Donaldo Allen MD IMG DIAGNOSTIC ORDERABLES Final Result * GUANAKITO BONE DENSITOMETRY AXIAL SKELETON (07/17/2020) Anatomical Region Laterality Modality BODY N/A Other Phan Orozco DO IMG DEXA ORDERABLES Final Resul t * GUANAKITO DIAG BILATERAL DIGITAL W CAD W YOU (05/01/2017) Anatomical Region Laterality Modality breast Bilateral Mammography Vasile Neri MD IMG MAMMO ORDERABLES Final Result from Last 3 Months or Most Recently Relevant to Health Maintenance Care Teams Plant Worker Relationship Specialty Start Date End Date John Resendez DO [address] [place] [address] [address] [place] [address] PCP - General Internal Medicine 08/01/15 Phan Orozco DO [address] [place] [address] [address] [place] [address] Gastroenterology 10/15/16 Donaldo Allen MD [address] [place] [address] Consulting Physician Gastroenterology 12/08/21
--- OUTSIDE RECORDS SUMMARY | 2025-08-14 08:31 | XMS_ITS | Encounter Summary ---
Author Organization [facility] Address [address] [place] [address] Phone Care Team Providers Care Guide Changer Name Role Phone John Resendez DO Primary Care Provider Phan Orozco DO Unavailable [phone] Donaldo Allen MD Unavailable [phone] Reason for Visit * Reason Comments Medication Refill Encounter Details Date Type Department Care Team (Late st Contact Info) Description 01/26/2022 Refill [facility] - G[facility]enterology - [place] [address] [place] [id number] Catarino Tegan Rbenda, PAC [address] [place] [address] Medication Refill Social History Tobacco Use Types [...] reflux documented in this encounter Care Teams Guide Changer Relationship Specialty Start Date End Date John Resendez DO [address] [place] [address] PCP - General Internal Medicine 08/01/15 Phan Orozco DO [facility] [place] [address] Gastroenterology 10/15/16 Donaldo Allen MD [address] [place] [address] Consulting Physician Gastroenterology 12/08/21 documented as of this encounter
--- OUTSIDE RECORDS SUMMARY | 2025-08-14 08:31 | XMS_ITS | Clinical Summary ---
Author Organization [facility] Address [address] [place] [address] Care Team Providers Care Custom Shoe Designer And Maker Name Role Phone Unavailable Primary Care Provider Unavailabl e Source Comments [facility],non-owned Affiliates and Associated Physician Practices is amultiple site organization consisting of ambulatory clinics and hospital sitesin [place], [place], [place] and [place]. This disclosure is being madepursuant to the Care Everywhere program and may not contain all information available regarding this patient. Last updated 18.[facility] Social History Tobacco Use Types Packs/Day Years Used Date Smoking Tobacco: Never Assessed Comments Unknown Sex and Gender Information Value Date Recorded Sex Assigned at Not on file Legal Sex Female 6:43 PM SHRIMPER Gender Identity Not on file Sexual Orientation [...] DEPRESSION SCREENING 08/23/2024 COVID-19 VACCINE (1 - 2024-2 6 season) 2025 INFLUENZA VACCINE (#1) 2025 Respiratory [...] patient's age to complete this topic Insurance [facility] MEDICARE SELF PAY NO INSURANCE Member Subscriber Plan / Payer (Ef fective for All Dates) Name:Yamileth Santizo Member ID:Not on file Relation to Subscriber:Not on file Name:YAMILETH SANTIZO Subscriber ID:Not on file (Home) Address: [address] [place] [id number] Payer ID:Not on file Group ID:Not on file Type:Self Pay Address: [place], [place] [facility] MEDIC[facility]
--- OUTSIDE RECORDS SUMMARY | 2025-08-14 08:32 | XMS_ITS | Clinical Summary ---
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
--- OUTSIDE RECORDS SUMMARY | 2025-08-14 08:32 | XMS_ITS | Patient Health Record ---
Author Organization [facility] Address [address] [facility] [address] [place] [address] Care Team Providers Care Dredge Boat Engineer Name Role Phone Wolfgang Johns Unavailable [phone] Reason For Referral No Information Plan Of Treatment No Information Insurance Providers Payer Name Payer Address Payer Phone Subscriber Number Group Number Insured Name Patient Relationship to Insured Coverage Start Date Coverage End Date [place] [address] [address] [place] [address] [phone] [id number] DOI 14 Nichole Santizo Self - patient is the insured
--- OUTSIDE RECORDS SUMMARY | 2025-08-14 08:32 | XMS_ITS | Clinical Summary ---
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
--- OUTSIDE RECORDS SUMMARY | 2025-08-14 08:32 | XMS_ITS | Encounter Summary ---
Author Organization [facility] Address 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
== END 2025-08-14 08:25 | disposition home or self-care (01) ==
PROVIDERS: PCP Clinical Nurse Specialist; Visit Provider Clinical Nurse Specialist
DX: Z12.2 Encounter for screening for malignant neoplasm of respiratory organs (principal); Z87.891 Personal history of nicotine dependence
CPT/HCPCS: 71271